=== PATIENT | female | born 1985 | race Caucasian/White ===

== ENCOUNTER → 2018-07-25 12:10 | Outpatient (CLI) | payer OTHER, SELFPAY ==
--- NOTE | 2018-07-25 12:22 | XR_ITS ---
XR chest 2V HISTORY: ITS.REASON: SOB ORDERING PHYSICIAN: Jose Lee MD PATIENT AGE: 33 years COMPARISON: None FINDINGS: The cardiomediastinal silhouette and pulmonary vascularity are within normal limits. The lungs are clear without infiltrates, suspicious nodules, or pleural effusions. No acute bony abnormalities. IMPRESSION: Negative chest, no acute finding
== END ==
PROVIDERS: PCP Family Medicine; Visit Provider Family Medicine
DX: R06.02 Shortness of breath (principal)
CPT/HCPCS: 71046

== ENCOUNTER → 2018-07-30 10:47 | Outpatient (CLI) | payer OTHER, SELFPAY ==
--- NOTE | 2018-07-30 | CA_ITS ---
PROCEDURE: 2-D M-mode and color Doppler study INDICATIONS FOR THE TEST: Chest pain COPD Heart Murmur Tobacco Smoking Palpitations Fatigue+ Syncope Edema+ Hypertension Diabetes Mellitus Rheumatic Fever SOB ANAYA+Obesity Hyperlipidemia Family History HD+ Additional History edema, soa PATIENT INFORMATION HEIGHT: 69 WEIGHT: 210 GENDER: Female B/P:145/84 2-D/M-MODE INTERPRETATION: 2-D MEASUREMENTS OBSERVED VALUES IN CMS Right Ventricular Dimension (RVDd) 2.1 Interventricular Septum (Thickness)(IVsd) 0.7 Left Ventricular Internal Dimensions(LVIDd) 5.4 Left Ventricular Posterior Wall (Thickness)(LVPWd) 0.7 Aortic Root 2.6 Aortic Cusp Separation 2.0 Left Atrial Dimensions (LAD) 3.7 2D 1. Left atrium is normal size, left ventricle is normal size, there is no concentric left ventricular hypertrophy, visually estimated ejection fraction 55% with no regional wall motion abnormality. 2. The right atrium and right ventricle are normal size and contractility. 3. The aortic, mitral and tricuspid valvular grossly normal. 4. The pulmonic valve is poorly visualized. 5. No significant pericardial effusion noted. DOPPLER INTERROGATION: Doppler interrogation of the aortic, mitral and tricuspid valvular presence of mild mitral and tricuspid regurgitation, tricuspid regurgitation jet velocity is inadequate for calculation of the right ventricular systolic pressure, diastolic parameters are within normal range. CONCLUSION: 1. Normal left ventricular size, there is no concentric left ventricular hypertrophy, visually estimated ejection fraction 55% with no regional wall motion abnormality, diastolic parameters are within normal range. 2. Mild mitral and tricuspid regurgitation 3. No significant pericardial effusion noted.
== END ==
PROVIDERS: PCP Family Medicine; Visit Provider Family Medicine
DX: R06.02 Shortness of breath (principal); R60.9 Edema, unspecified; R53.83 Other fatigue
CPT/HCPCS: 93306

== ENCOUNTER → 2019-03-04 10:15 | Outpatient (CLI) | payer OTHER, SELFPAY ==
--- NOTE | 2019-03-04 10:23 | MM_ITS ---
MM Dig mamm BI DX w/CAD, US breast RT complete, US breast LT complete INDICATION: Breast pain ORDERING PHYSICIAN: Christi Witt APRN PATIENT AGE: 33 years COMPARISON: None TECHNIQUE: Bilateral mammogram performed along spot compression views and bilateral breast ultrasound FINDINGS: There is average to dense fibroglandular tissue. No discrete mass or malignant appearing microcalcification. Asymmetric density was present in the medial aspect of both breasts which probably related asymmetric fibroglandular tissue. Less apparent on the focal spot compression views but not completely disappearing. No sonographic abnormality evident.. Right breast ultrasound: Unremarkable. No cystic or solid lesions Left breast ultrasound: Unremarkable. No cystic or solid lesions IMPRESSION: Probably benign findings regarding asymmetry in the medial aspect of both breasts. No convincing evidence of malignancy. Suggest 6 month mammographic follow-up BI-RADS Category: 3 Probably Benign Finding Short Term Follow-up RECOMMENDED FOLLOW-UP: 6M - 6 MONTH FOLLOW-UP (A letter has been sent to the patient regarding results of the study.)
== END ==
PROVIDERS: PCP Family Medicine; Visit Provider Nurse Practitioner Family
DX: Z12.31 Encounter for screening mammogram for malignant neoplasm of breast (principal)
CPT/HCPCS: 76641; 77066

== ENCOUNTER → 2020-06-02 09:35 | Outpatient (CLI) | payer OTHER, SELFPAY ==
--- NOTE | 2020-06-02 09:50 | US_ITS ---
PROCEDURE: US ABDOMEN LIMITED CLINICAL INDICATION: REFLUX,ABD CRAMPS,N/V COMPARISON: No exams were available for comparison FINDINGS: PANCREAS: Unremarkable. No obvious mass or abnormal fluid collection. No ductal dilatation LIVER: No focal liver lesions demonstrated. Homogeneous echogenicity. No intrahepatic biliary ductal dilatation evident. There is appropriate direction of blood flow within a non dilated portal vein RIGHT KIDNEY: Unremarkable. Normal size and echogenicity. No hydronephrosis GALLBLADDER: There are multiple gallstones. No gallbladder wall thickening, pericholecystic fluid, or biliary dilatation is evident. Common bile duct is normal at 2 mm IMPRESSION: Cholelithiasis otherwise negative Dictated by: Bacilio Locke MD 06/02/2020 18:14 Bacilio Locke MD in [place] 06/02/2020 18:14
== END ==
PROVIDERS: PCP Family Medicine; Visit Provider Nurse Practitioner Family
DX: K21.9 Gastro-esophageal reflux disease without esophagitis (principal)
CPT/HCPCS: 76705

== ENCOUNTER 2020-08-12 17:30 | Emergency (ER) | payer OTHER, SELFPAY ==
[2020-08-12 17:40] VITALS: BP 136/76; PULSE 58; RESP 20; TEMP 37.3; O2SAT 100; BMI 31.1
--- NOTE | 2020-08-12 18:00 | HMH.EDUTC ---
[facility] [place] Disposition Clinical Impression: Viral syndrome, Exposure to COVID-19 virus Disposition: Home, Self-Care Condition on Discharge: Good Instructions: Preventing the Spread of Coronavirus Discharge Instructions Additional Instructions: Drink plenty of fluids. Take tylenol for pain or fever. Return if you begin to have difficulty breathing. Follow up with your regular doctor. GO TO THE ER FOR ANY WORSENING SYMPTOMS Prescriptions: Ondansetron [Zofran 4mg ODT] 4 mg PO Q8HP PRN #12 tab.rapdis PRN Reason: Nausea Transmission Status: Received by [id number] Referrals: Jose Lee MD [Primary Care Provider] - Time of Disposition: 18:01 Medical Decision Making - Medical Records Medical records reviewed: No: I reviewed the patient's medical records. - Jay Inquiry Pt receiving controlled substance: No Vital Signs: 08/12/20 17:40 08/12/20 18:06 Temperature 99.1 F 99.1 F Temperature Source Oral Pulse Rate 58 L Pulse Rate [Right Brachial] 58 L Respiratory Rate 20 20 Blood Pressure 136/76 Blood Pressure [Right Arm] 136/76 Blood Pressure Mean [Right Arm] 96 Blood Pressure Source [Right Arm] Automatic Cuff Blood Pressure Position [Right Arm] Sitting 02 Sat by Pulse Oximetry 100 Oxygen Delivery Method Room Air Orders (Tests/Meds): ORDERS Category Date Time Status Covid-19 Nasal PCR ([facility]) Routine Lab 08/12/20 17:44 Received [facility] [place] HPI - General Stated complaint: covid exposure, headache Time Seen by Provider: 08/12/20 17:45 - History of Present Illness Provider Complaint: She c/o body aches, cough, n/d since yesterday. She was exposed to covid. - Related Data Home Medications Medication Instructions Recorded Confirmed pantoprazole 40 mg tablet,delayed PO #30 tab 02/05/19 06/23/20 release Previous Rx's Medication Instructions Recorded norgestimate 0.25 mg-ethinyl 1 tab PO ONCE #84 tab 10/27/19 estradiol 35 mcg tablet Ondansetron [Zofran 4mg ODT] 4 mg PO Q8HP PRN #12 tab.rapdis 08/12/20 Allergies Allergy/AdvReac Type Severity Reaction Status Date / Time No Known Allergies Allergy Verified 06/23/20 09:24 [facility] History - Hepatitis A Screen Attestation statement:: This patient has been screened for Hepatitis A risk factors. I have reviewed the patient's past medical history: Yes Laterality Cases: Bilateral: Tonsillectomy - Social History Smoking Status: Never smoker Alcohol Intake: current Alcohol Intake Frequency:: holidays/special occasions only Occupational Status: employed Family Hx:: Diabetes, Asthma Comment: Gestational Diabetes-Mother ROS Obtained: Yes All systems reviewed & no additional complaints - Constitutional Constitutional: Reports system reviewed and no additional complaints, except as docu - Eyes Eyes: Reports system reviewed and no additional complaints, except as docu - ENT Ears, Nose, Mouth, and Throat: Reports system reviewed and no additional complaints, except as docu - Cardiovascular Cardiovascular: Reports system reviewed and no additional complaints, except as docu - Respiratory Respiratory: Yes system reviewed and no additional complaints, except as docu - Gastrointestinal Gastrointestingal: Reports: system reviewed and no additional complaints, except as docu Physical Exam - General General appearance: alert, in no apparent distress - Head Head exam: atraumatic, normocephalic, normal inspection - Eye Eye exam: Present: normal appearance, PERRL, EOMI - ENT ENT exam: Present: normal exam, normal oropharynx, mucous membranes moist, TM's normal bilaterally, normal external ear exam - Neck Neck exam: Present: normal inspection, full ROM, trachea midline. Absent: meningismus, lymphadenopathy - Chest Chest inspection: Present: normal inspection, symmetric chest wall rise. Absent: tenderness - Respiratory Respiratory exam: Present: normal lung sounds bilat
[2020-08-12 18:06] VITALS: BP 136/76; PULSE 58; RESP 20; TEMP 37.3; O2SAT 100
== END 2020-08-12 18:13 | disposition home or self-care (01) ==
PROVIDERS: Emergency Provider Nurse Practitioner Family; PCP Family Medicine
DX: Z20.828 Contact with and (suspected) exposure to other viral communicable diseases (principal); B34.9 Viral infection, unspecified
CPT/HCPCS: 99201; U0003

== ENCOUNTER → 2020-12-31 10:57 | Outpatient (CLI) | payer OTHER, SELFPAY ==
--- NOTE | 2020-12-31 11:00 | US_ITS ---
PROCEDURE: US TRANSVAGINAL CLINICAL INDICATION: IRREGULAR PERIOD COMPARISON: No exams were available for comparison FINDINGS: UTERUS: 6.4 x 4cmx 3cm with a combined endometrial thickness of 1.2mm LEFT OVARY: 0nsm1tcc1.6cm with a volume of 15ml. RIGHT OVARY: 2cmx 2xyj2ln with a volume of 0.9ml. Retroverted uterus is noted. There is an anechoic lesion noted in the left ovary measuring 3.7 x 2.6 centimeters, likely represents a cyst. No free fluid in the pelvic cul-de-sac. IMPRESSION: Cyst in the left ovary measuring 3.7 centimeters. No free fluid. Dictated by: Yamila Machado 12/31/2020 14:28 Yamila Machado in [place] 12/31/2020 14:28
== END ==
PROVIDERS: PCP Nurse Practitioner Family; Visit Provider Physician Assistant
DX: N92.6 Irregular menstruation, unspecified (principal)
CPT/HCPCS: 76830

== ENCOUNTER 2021-04-21 18:10 | Emergency (ER) | payer OTHER, SELFPAY ==
[2021-04-21 19:10] VITALS: BP 151/101; PULSE 67; RESP 18; TEMP 36.7; O2SAT 98; BMI 27.8
--- NOTE | 2021-04-21 19:29 | XR_ITS ---
PROCEDURE INFORMATION: Exam: XR Right Foot Exam date and time: 04/21/2021 7:29 PM Age: 36 years old Clinical indication: Injury or trauma; Other: Struck 5th (pinky) toe on couch; Blunt trauma; Foot; Right; Additional info: Hit pinky toe on couch TECHNIQUE: Imaging protocol: XR Right foot. Views: 3 or more views. COMPARISON: No relevant prior studies available. FINDINGS: Bones/joints: Oblique intra-articular fracture at the head of the little toe proximal phalanx. Plantar calcaneal spur. No other acutely displaced fractures are identified. There is no evidence of joint dislocation. No aggressive osseous lesions. Soft tissues: Swelling at the little toe. IMPRESSION: Oblique intra-articular fracture at the head of the little toe proximal phalanx.
--- NOTE | 2021-04-21 20:20 | HMH.EDUTC ---
[facility] [place] Disposition Clinical Impression: Fracture of fifth toe, right, closed Qualifiers: Encounter type: initial encounter Qualified Code(s): S92.501A - Displaced unspecified fracture of right lesser toe(s), initial encounter for closed fracture Disposition: Home, Self-Care Condition on Discharge: Good Instructions: Toe Fracture, DI for Toe Fracture Additional Instructions: Rest the extremity, apply ice for 15 minutes as tolerated three or four times per day, Elevate the extremity as tolerated while you are resting. Take ibuprofen for pain. I sent in a prescription to your pharmacy. Follow up with Dr. Campos (orthopedics). I put in a referral but you need to call her office and schedule an appointment. Follow up with your regular doctor. GO TO THE ER FOR ANY WORSENING SYMPTOMS Prescriptions: Ibuprofen [Ibuprofen 800mg Tablet] 800 mg PO Q8HP PRN #30 tab PRN Reason: Moderate Pain Transmission Status: Received by [id number] Referrals: Flor Garcia PA [Primary Care Provider] - Bernice Campos DPM [Staff Physician] - Time of Disposition: 20:27 Medical Decision Making - Medical Records Medical records reviewed: No: I reviewed the patient's medical records. - Jay Inquiry Pt receiving controlled substance: No Vital Signs: 04/21/21 19:10 04/21/21 20:29 Temperature 98.1 F 98.1 F Temperature Source Oral Pulse Rate 67 Pulse Rate [Right Brachial] 67 Respiratory Rate 18 18 Blood Pressure 151/101 H Blood Pressure [Right Arm] 151/101 H Blood Pressure Mean [Right Arm] 117 Blood Pressure Source [Right Arm] Automatic Cuff Blood Pressure Position [Right Arm] Sitting 02 Sat by Pulse Oximetry 98 Oxygen Delivery Method Room Air - Radiology Data #1 Image(s): Foot/Toes Image Reviewed: Yes I reviewed the patient's radiology image, Yes I have reviewed radiologist's interpretation Preliminary Findings: Abnormal PROCEDURE INFORMATION: Exam: XR Right Foot Exam date and time: 04/21/2021 7:29 PM Age: 36 years old Clinical indication: Injury or trauma; Other: Struck 5th (pinky) toe on couch; Blunt trauma; Foot; Right; Additional info: Hit pinky toe on couch TECHNIQUE: Imaging protocol: XR Right foot. Views: 3 or more views. COMPARISON: No relevant prior studies available. FINDINGS: Bones/joints: Oblique intra-articular fracture at the head of the little toe proximal phalanx. Plantar calcaneal spur. No other acutely displaced fractures are identified. There is no evidence of joint dislocation. No aggressive osseous lesions. Soft tissues: Swelling at the little toe. IMPRESSION: Oblique intra-articular fracture at the head of the little toe proximal phalanx. [facility] [place] HPI - General Stated complaint: AO 1700 injured r Little toe Time Seen by Provider: 04/21/21 19:50 Mode of Arrival: Ambulatory Source of Information: Patient Limitations: No Limitations Description of Symptoms (Recalled from Triage Doc. by RN): PATIENT C/O INJURY TO RIGHT PINKY TOE AFTER HITTING IT ON COUCH TODAY HEENT Symptoms (Recalled from RN notes): No Resp Symptoms (Recalled from RN notes): No Skin Symptoms (Recalled from RN notes): No MS Symptoms (Recalled from RN notes): Yes Functional Status (Recalled from RN notes): WNL - History of Present Illness Provider Complaint: She states that earlier today she was walking thru her living room and she accidentily hit her right 5th toe on the couch leg. She states that she heard a loud pop and it began to hurt and swell. Since then she has had right foot pain and swelling in the area of her 5th toe. - Related Data Previous Rx's Medication Instructions Recorded norgestimate 0.25 mg-ethinyl 1 tab PO DAILY #84 tab 03/03/21 estradiol 35 mcg tablet Ibuprofen [Ibuprofen 800mg 800 mg PO Q8HP PRN #30 tab 04/21/21 Tablet] Allergies Allergy/AdvReac Type
[2021-04-21 20:29] VITALS: BP 151/101; PULSE 67; RESP 18; TEMP 36.7; O2SAT 98
== END 2021-04-21 20:46 | disposition home or self-care (01) ==
PROVIDERS: Emergency Provider Nurse Practitioner Family; PCP Physician Assistant
DX: S92.514A Nondisplaced fracture of proximal phalanx of right lesser toe(s), initial encounter for closed fracture (principal); W22.03XA Walked into furniture, initial encounter; Y92.019 Unspecified place in single-family (private) house as the place of occurrence of the external cause
CPT/HCPCS: 73630; 99202; G0463

== ENCOUNTER → 2021-05-26 10:47 | Outpatient (CLI) | payer OTHER, SELFPAY ==
--- NOTE | 2021-05-26 10:52 | XR_ITS ---
PROCEDURE: XR FOOT WT BEARING RT 3V CLINICAL INDICATION: fracture evaluation COMPARISON: CR XR FOOT RT MIN 3V from 04/21/2021 FINDINGS: No after the head of the proximal phalanx little toe has essentially healed with no significant deformity. The tarsal bones metatarsals and remaining phalanges all appear intact. Again noted is a small spur of the calcaneus at the insertion of plantar tendon. IMPRESSION: Essentially healed fracture head of proximal phalanx little toe Dictated by: Dr. Serg Beverly MD 05/26/2021 11:28 Dr. Serg Beverly MD in [place] 05/26/2021 11:28
== END ==
PROVIDERS: PCP Nurse Practitioner Family; Visit Provider Nurse Practitioner
DX: S92.514A Nondisplaced fracture of proximal phalanx of right lesser toe(s), initial encounter for closed fracture (principal); S92.501A Displaced unspecified fracture of right lesser toe(s), initial encounter for closed fracture; T14.8XXA Other injury of unspecified body region, initial encounter
CPT/HCPCS: 73630

== ENCOUNTER → 2021-08-30 13:33 | Outpatient (POV) | payer OTHER, SELFPAY | PROVIDERS: Visit Provider Dermatology | DX: Z00.00 Encounter for general adult medical examination without abnormal findings (principal) ==

== ENCOUNTER → 2021-09-15 17:05 | Outpatient (CLI) | payer OTHER, SELFPAY | PROVIDERS: Visit Provider Nurse Practitioner | DX: Z20.822 Contact with and (suspected) exposure to COVID-19 (principal) | CPT/HCPCS: C9803; U0003; U0005 ==

== ENCOUNTER 2022-05-10 19:46 | Inpatient (IN) | payer OTHER, SELFPAY ==
[2022-05-10] VITALS (7 sets, daily range): BP systolic 107–151; BP diastolic 69–96; PULSE 81–97; RESP 14–17; TEMP 36.4–36.9; O2SAT 94–100; BMI 29.5; BMI 28.8
--- NOTE | 2022-05-10 20:27 | CT_ITS ---
PROCEDURE INFORMATION: Exam: CT Abdomen And Pelvis With Contrast Exam date and time: 05/10/2022 8:58 PM Age: 37 years old Clinical indication: Abdominal pain TECHNIQUE: Imaging protocol: Computed tomography of the abdomen and pelvis with contrast. Radiation optimization: All CT scans at this facility use at least one of these dose optimization techniques: automated exposure control; mA and/or kV adjustment per patient size (includes targeted exams where dose is matched to clinical indication); or iterative reconstruction. Contrast material: ISOVUE; Contrast volume: 75 ml; Contrast route: IV; COMPARISON: US ABDOMEN LIMITED 06/02/2020 10:02 AM FINDINGS: Liver: Normal. No mass. Gallbladder and bile ducts: Cholelithiasis. Pancreas: Marked pancreatic and peripancreatic edema. Free fluid in the abdomen and pelvis likely related to acute pancreatitis. Spleen: Normal. No splenomegaly. Adrenal glands: Normal. No mass. Kidneys and ureters: Normal. No hydronephrosis. Stomach and bowel: Unremarkable. No obstruction. No mucosal thickening. Appendix: Unremarkable appendix. Intraperitoneal space: Unremarkable. No free air. No significant fluid collection. Vasculature: Unremarkable. No abdominal aortic aneurysm. Lymph nodes: Unremarkable. No enlarged lymph nodes. Urinary bladder: Unremarkable as visualized. Reproductive: Unremarkable as visualized. Bones/joints: Unremarkable. No acute fracture. Soft tissues: Tiny fat containing umbilical hernia. Other findings: Stigmata of old granulomatous disease. IMPRESSION: 1. Marked pancreatic and peripancreatic edema. This is most consistent with acute pancreatitis. No peripancreatic fluid collection. Patent portal and splenic veins. Consider MRCP to exclude noncalcified choledocholithiasis/gallstone pancreatitis. Consider excluding autoimmune pancreatitis clinically as well. 2. Cholelithiasis.
[2022-05-10 20:29] LABS: Microscopic, Urine URINE MICROSCOPIC (MICROSCOPIC)
[2022-05-10 20:29] LABS: Coronavirus 19, PCR Not Detected (NotDetected); Influenza A, PCR Not Detected (NotDetected); Influenza B, PCR Not Detected (NotDetected)
[2022-05-10 20:41] LABS: Basophils # 0.1 K/mm3 (0-0.2); Basophils % 0.4 % (0.1-2.0); Eosinophils # 0.2 K/mm3 (0.0-0.4); Eosinophils % 0.4 % (0.1-12.0); Hematocrit 48.5 % (37.0-47.0); Hemoglobin 15.3 g/dL (12.2-16.2); Lymphocytes # 2.1 K/mm3 (0.7-4.5); Lymphocytes % 5.9 % (10-50); Mean Corpuscular HGB Conc 31.6 g/dL (31.8-35.4); Mean Corpuscular Volume 95.1 fl (81-99); Mean Platelet Volume 9.8 fl (7.4-10.4); Monocytes # 1.4 K/mm3 (0.1-1.0); Neutrophils # 30.8 K/mm3 (1.8-7.8); Neutrophils % 89.3 % (37.0-80.0); Platelet Count 308 K/mm3 (142-424); Red Cell Distribution Width 13.1 % (11.5-17.5); White Blood Count 34.5 K/mm3 (4.8-10.8)
[2022-05-10 20:42] LABS: Alanine Aminotransferase 51 U/L (12-78); Albumin Level 4.1 g/dl (3.5-5.0); Albumin/Globulin Ratio 1.2 (1.1-1.8); Alkaline Phosphatase 102 U/L (38-126); Anion Gap 20.4 mEq/L (5-15); Aspartate Amino Transferase 128 U/L (14-36); Bilirubin,Total 1.9 mg/dl (0.2-1.3); Blood Urea Nitrogen 18 mg/dl (7-17); Calcium 8.6 mg/dl (8.4-10.2); Carbon Dioxide 21 mmol/L (22.0-30.0); Chloride 99 mmol/L (98-107); Creatinine Clearance Estimated 135 mL/min (50-200); Estimated Glomerular Filt Rate 81 ml/min (>60); GFR (African American) 98 ML/MIN (>60); Globulin 3.4 g/dL (1.3-3.2); Glucose 197 mg/dl (74-100); Potassium 4.4 mmoL/L (3.5-5.1); Sodium 136 mmol/L (136-145); Total Protein,Serum 7.5 g/dl (6.3-8.2)
[2022-05-10 20:43] LABS: Appearance,Urine CLEAR (Clear); Bilirubin,Urine Negative (Negative); Blood, Urine 1+ (Negative); Color,Urine YELLOW (Yellow); Glucose,Urine (UA) Negative (Negative); Ketones,Urine Negative (Negative); Leukocyte Esterase,Urine Negative (Negative); Nitrate,Urine Negative (Negative); Protein,Urine Negative (Negative); Specific Gravity, Urine 1.025 (1.005-1.030); Urobilinogen,Urine 0.2 EU/dl (0.2)
[2022-05-10 20:48] LABS: C-Reactive Protein 9.3 mg/L (0-4)
--- NOTE | 2022-05-10 20:48 | PC.NURSE ---
PT to bathroom with staff assistance and use of wheelchair.
[2022-05-10 20:56] LABS: Urine Pregnancy, HCG Qual. Negative (Negative)
[2022-05-10 20:59] LABS: MANUAL DIFFERENTIAL MANUAL DIFFERENTIAL (MANUAL DIFF)
[2022-05-10 21:01] LABS: Bacteria,Urine Trace /lpf; Mucus,Urine 1+ /lpf; Squamous Epithelial Cell,Urine Occasional #/hpf (0-5); WBC,Urine Occasional #/hpf (0-3)
[2022-05-10 21:03] LABS: Procalcitonin 0.079 ng/mL (0.0-2.0)
--- NOTE | 2022-05-10 21:10 | PC.NURSE ---
Pt given pillow for comfort. No other needs at this time.
[2022-05-10 21:28] LABS: Amylase 5950 U/L (30-110)
--- NOTE | 2022-05-10 21:34 | HMH.EDNVD ---
Discharge Plan Disposition Patient Disposition: Admitted As Inpatient Chief Complaint: Nausea/Vomiting/Diarrhea Prescriptions Prescriptions: No Action norgestimate-ethinyl estradiol [Sprintec (28)] 0.25-35 mg-mcg tablet 1 tab PO DAILY Referrals Follow up/Referrals: Flor Garcia PA [Primary Care Provider] - See instructions Clinical Impressions Clinical Impression: Acute pancreatitis, Cholelithiasis Instructions Patient Instructions: DI for Diarrhea and Traveler's Diarrhea -- Adult, DI for Diarrhea and Traveler's Diarrhea -- Child, DI for Nausea -- Adult, DI for Nausea -- Child Discharge ED Provider: Devante Zavala Nausea/Vomiting/Diarrhea HPI General Chief complaint: Nausea/Vomiting/Diarrhea Stated complaint: N/V/ABD Pain Time Seen by Provider: 05/10/22 21:34 Mode of Arrival: EMS Source of Information: Patient, Spouse and Medical Record Limitations: No Limitations Description of Symptoms (Recalled from ER Triage Doc. by RN): PT REPORTS NAUSEA/VOMITING SINCE SUNDAY. PT REPORTS INTERMITT PAIN, BUT DENIES PAIN AT THIS TIME. PT FELL ASLEEP SEVERAL TIMES DURING TRIAGE. History of Present Illness HPI Narrative: upper abd pain with nausea and vomiting progressive since sat - has had sx prev intermitt over the last yr MD complaint: nausea, vomiting and abdominal pain Onset (ago): day(s) Associated Abdominal Pain: Yes Location of pain: RUQ and epigastric Severity: moderate Quality: cramping Consistency: intermittent Associated symptoms: denies other symptoms Related Data Home Medications Medication Instructions Recorded Confirmed norgestimate 0.25 mg-ethinyl 1 tab PO DAILY control 05/10/22 05/10/22 estradiol 35 mcg tablet (Sprintec (28)) Allergies Allergy/AdvReac Type Severity Reaction Status Date / Time No Known Allergies Allergy Verified 02/07/22 08:41 PFSH PFSH Social History Smoking Status: Current every day smoker alcohol intake: current substance use type: former substance user and marijuana current occupational status: employed and other Travel in the last 8 weeks: None ROS Obtained: Yes All systems reviewed & no additional complaints except as documented Constitutional Constitutional: Denies fever(s) Eyes Eyes: Denies diplopia ENT Ears, Nose, Mouth, and Throat: Denies epistaxis Cardiovascular Cardiovascular: Denies chest pain with activity Respiratory Respiratory: Denies cough Gastrointestinal Gastrointestingal: Reports as per HPI, dyspepsia and vomiting; Denies coffee ground emesis Genitourinary Female Genitourinary: Denies hematuria Musculoskeletal Musculoskeletal: Denies joint stiffness Physical Exam General General appearance: alert and in no apparent distress Head Head exam: normocephalic Eye Eye exam: Present PERRL and EOMI ENT ENT exam: Present mucous membranes moist Neck Neck exam: Present trachea midline Respiratory Respiratory exam: Present normal lung sounds bilaterally Cardiovascular Cardiovascular exam: Present regular rate Abdominal Exam Abdominal exam: Present soft, tenderness and Haas's sign; Absent guarding, rebound or rigidity Abdominal tenderness: Present RUQ, epigastrium and moderate Extremities Exam Extremities exam: Present full ROM Back Exam Back exam: Absent CVA tenderness (R) Neurological Exam Neurological exam: Present alert, oriented X3 and CN II-XII intact Psychiatric Psychiatric exam: Present normal affect Skin Skin exam: Absent rash Medical Decision Making Medical Records Medical records reviewed: Yes I reviewed the patient's medical records. Jay Inquiry Pt receiving controlled substance: No Vital Signs: 05/10/22 19:51 05/10/22 20:01 Temperature 97.5 F L Temperature Source Oral Pulse Rate 81 Pulse Rate [Left Radial] 87 Respiratory Rate 16 16 Blood Pressure 109/69 L Blood Pressure [Right Arm] 107/85 L Blood Pressure Mean 82 Blood Pressure Mean [Right Arm] 92 Blood Pressure Sour
--- NOTE | 2022-05-10 21:49 | PC.NURSE ---
MD MADE AWARE OF PT REQUEST FOR PAIN MEDICATIONS.
[2022-05-10 22:02] LABS: Erythrocyte Sedimentation Rate 1 mm/hr (0-20)
--- NOTE | 2022-05-10 22:08 | PC.NURSE ---
Dr. Rafita holcomb
--- NOTE | 2022-05-10 22:16 | PC.NURSE ---
benedict on phone with dr roper
--- NOTE | 2022-05-10 22:17 | PC.NURSE ---
PT AWARE OF PLAN TO ADMIT AND NPO STATUS.
--- NOTE | 2022-05-10 22:18 | PC.NURSE ---
House made aware of pt admission and need for bed assignment
--- NOTE | 2022-05-10 22:33 | PC.NURSE ---
PT AND FAMILY AWARE OF PLAN TO ADMIT.
--- NOTE | 2022-05-10 22:58 | PC.NURSE ---
PT REQUESTS DRINKS. NPO STATUS REINFORCED. PT OFFERED ORAL SWABS AND DECLINED.
[2022-05-10 23:01] LABS: Lymphocytes % 7 % (10-50); Neutrophils % 93 % (42-76); Total Cells Counted 100
--- NOTE | 2022-05-10 23:01 | PC.NURSE ---
ORAL SWABS GIVEN.
[2022-05-10 23:02] LABS: Platelet Estimate Normal; RBC Morphology Normal
--- NOTE | 2022-05-10 23:07 | PC.NURSE ---
patient up to floor via wheelchair at this time.
[2022-05-11] VITALS (11 sets, daily range): BP systolic 117–146; BP diastolic 79–98; PULSE 82–164; RESP 16–20; TEMP 36.4–36.9; O2SAT 95–98; BMI 28.8
--- NOTE | 2022-05-11 04:27 | PC.NURSE ---
Pt arrived to floor this shift, alert and oriented x4. Pt has complained of nausea and pain this shift, treated prn per mar. Pt is at bedside. Pt has rested since arriving to the floor. Pt ambulated to the restroom with 1 assist. Pt is receiving IV fluids. Pt lung sounds clear. Abdomen soft and tender, bowel sounds active. O2 sat >90% on room air. Call light in reach and working.
--- NOTE | 2022-05-11 07:24 | EXP.PHA.VTE ---
[facility] VTE Monitoring Patient Demographics Admission date: 05/10/22 Report Date: 05/11/22 Time: 07:24 Patient Allergies No Known Allergies Allergy (Verified 05/10/22 23:11) Height: 1.73 m Weight: 86.409 kg Current Active Problems (Updated 05/10/22 @ 23:19 by Maria R Barry RN) Acute pancreatitis (Acute) Cholelithiasis (Acute) VTE Risk Labs: VTE Related Lab Results Hgb 15.3 g/dL (12.2-16.2) 05/10/22 20:10 Hct 48.5 % (37.0-47.0) H 05/10/22 20:10 Plt Count 308 K/mm3 (142-424) 05/10/22 20:10 BUN 18 mg/dl (7-17) H 05/10/22 20:10 Creatinine 0.80 mg/dl (0.52-1.04) 05/10/22 20:10 Estimated Creat Clear 135 mL/min (50-200) 05/10/22 20:10 VTE Score: 1 VTE Risk Level: Very Low Risk Clinical Trial Participant: No Prophylaxis VTE Prophylaxis Ordered?: Yes Types of VTE Prophylaxis: TEDS Knee High
[2022-05-11 08:02] LABS: Basophils # 0.1 K/mm3 (0-0.2); Basophils % 0.3 % (0.1-2.0); Eosinophils % 0.1 % (0.1-12.0); Hematocrit 52.9 % (37.0-47.0); Hemoglobin 16.3 g/dL (12.2-16.2); Lymphocytes # 0.7 K/mm3 (0.7-4.5); Lymphocytes % 2.9 % (10-50); Mean Corpuscular HGB Conc 30.8 g/dL (31.8-35.4); Mean Corpuscular Hemoglobin 29.7 pg (27.0-31.2); Mean Corpuscular Volume 96.6 fl (81-99); Mean Platelet Volume 9.2 fl (7.4-10.4); Monocytes # 0.7 K/mm3 (0.1-1.0); Monocytes % 3.1 % (1.7-9.3); Neutrophils # 22.4 K/mm3 (1.8-7.8); Neutrophils % 93.6 % (37.0-80.0); Platelet Count 321 K/mm3 (142-424); Red Blood Count 5.48 M/mm3 (4.20-5.40); Red Cell Distribution Width 13.4 % (11.5-17.5)
--- NOTE | 2022-05-11 08:02 | HMH.PHAINT1 ---
Pharmacy Intervention Comments: Home medication list was verified using outpatient pharmacy medication list.
[2022-05-11 08:04] LABS: MANUAL DIFFERENTIAL MANUAL DIFFERENTIAL (MANUAL DIFF)
[2022-05-11 08:15] LABS: Alanine Aminotransferase 62 U/L (12-78); Albumin Level 3.5 g/dl (3.5-5.0); Albumin/Globulin Ratio 1.2 (1.1-1.8); Alkaline Phosphatase 97 U/L (38-126); Anion Gap 20.6 mEq/L (5-15); Aspartate Amino Transferase 69 U/L (14-36); Bilirubin,Total 0.7 mg/dl (0.2-1.3); Blood Urea Nitrogen 18 mg/dl (7-17); Calcium 8.1 mg/dl (8.4-10.2); Carbon Dioxide 21 mmol/L (22.0-30.0); Chloride 101 mmol/L (98-107); Creatinine Clearance Estimated 106 mL/min (50-200); Estimated Glomerular Filt Rate 63 ml/min (>60); GFR (African American) 76 ML/MIN (>60); Glucose 269 mg/dl (74-100); Potassium 4.6 mmoL/L (3.5-5.1); Sodium 138 mmol/L (136-145); Total Protein,Serum 6.5 g/dl (6.3-8.2)
[2022-05-11 08:41] LABS: Lipase 7588 U/L (23-300)
--- NOTE | 2022-05-11 08:51 | PC.NURSE ---
Notified Dr. Lee of critical value lipase. No new orders
[2022-05-11 09:50] LABS: Lymphocytes % 3 % (10-50); Monocytes % 5 % (2-9); Neutrophils % 92 % (42-76); Platelet Estimate Normal; RBC Morphology Normal; Total Cells Counted 100
--- NOTE | 2022-05-11 09:50 | EXP.HP ---
History of Present Illness *Admission Date: 05/10/22 *Reason for visit:: abdominal pain, vomiting *History of present illness: Ms. Griffiths is a 37-year-old female with a history of GERD and IBS who began vomiting this past Sunday. She states she vomited every day and her reflux seems to be worse. Yesterday around 3 PM she began having horrific mid abdominal pain. Her family states she vomited so profusely between 3 and 5:00 yesterday that she could hardly breathe. She was brought to the emergency room for evaluation. She was given morphine, Reglan, and famotidine in the ER and a CT of the abdomen and pelvis was performed. It showed acute pancreatitis as well as gallstones. Her white blood cell count was elevated at 34.5 and her amylase was 5950 and lipase was 55,000. Her bilirubin was elevated at 1.9 and her AST was elevated at 128. She was admitted for further evaluation and treatment. [facility] Medical History (Updated 05/11/22 @ 10:01 by ABIGAIL Gramajo) GERD (gastroesophageal reflux disease) History of IBS Surgical History (Updated 05/11/22 @ 09:56 by ABIGAIL Gramajo) History of loop electrical excision procedure (LEEP) History of tonsillectomy Family History (Updated 05/11/22 @ 09:56 by ABIGAIL Gramajo) Cirrhosis of liver Hypertension Social History (Updated 05/10/22 @ 23:20 by Maria R Barry RN) Smoking Status: Former smoker alcohol intake: current substance use type: former substance user and marijuana current occupational status: employed and other Travel in the last 8 weeks: None Review of Systems Constitutional Constitutional: Denies body ache(s), Reports chills, Reports fatigue, Denies fever(s), Denies headache(s), Reports malaise and Reports weakness Eyes Eyes: Denies blurry vision and Denies diplopia ENT Ears, Nose, Mouth, and Throat: Denies headache(s), Denies nasal congestion, Reports sore throat and Denies vertigo *Cardiovascular Cardiovascular: Denies chest pain and Reports dyspnea *Respiratory Respiratory: Denies cough and Reports dyspnea *Gastrointestinal Gastrointestinal: Reports abdominal pain, Denies loose stools, Reports nausea and Reports vomiting *Genitourinary Genitourinary: Denies difficulty voiding and Denies dysuria *Musculoskeletal Musculoskeletal: Denies arthralgias and Reports myalgias *Neurologic Neurologic: Denies headache(s), Denies vertigo and Reports weakness Endocrine Endocrine: Reports fatigue Meds Home Medications and Allergies Home Medications Medication Instructions Recorded Confirmed Type norgestimate 0.25 mg-ethinyl 1 tab PO DAILY control 05/10/22 05/10/22 History estradiol 35 mcg tablet (Sprintec (28)) New Prescriptions to Start Prescriptions: Allergies Allergy/AdvReac Type Severity Reaction Status Date / Time No Known Allergies Allergy Verified 05/10/22 23:11 Exam Data for Last 24 hours Vital signs and Labs for Last 24 Hours: Temp Pulse Resp BP Pulse Ox 98.1 F 107 H 16 142/98 H 98 05/11/22 08:00 05/11/22 08:00 05/11/22 08:00 05/11/22 08:00 05/11/22 08:00 Laboratory Results - last 24 hr 05/10/22 20:10: WBC 34.5 H*, RBC 5.10, Hgb 15.3, Hct 48.5 H, MCV 95.1, MCH 30.0, MCHC 31.6 L, RDW 13.1, Plt Count 308, MPV 9.8, Neut % (Auto) 89.3 H, Lymph % (Auto) 5.9 L, [place] % (Auto) 4.0, Eos % (Auto) 0.4, Baso % (Auto) 0.4, Neut # (Auto) 30.8 H, Lymph # (Auto) 2.1, [place] # (Auto) 1.4 H, Eos # (Auto) 0.2, Baso # (Auto) 0.1, Total Counted 100, Neutrophils % (Manual) 93 H, Lymphocytes % (Manual) 7 L, Platelet Estimate Normal, RBC Morphology Normal 05/10/22 20:10: Sodium 136, Potassium 4.4, Chloride 99, Carbon Dioxide 21 L, Anion Gap 20.4 H, BUN 18 H, Creatinine 0.80, Estimated Creat Clear 135, Estimated GFR 81, Est GFR ( Amer) 98, Glucose 197 H, Calcium 8.6, Total Bilirubin 1.9 H, AST 128 H, ALT 51, Alkaline Phosphatase 102, C-Reactive Protein 9.3 H, Total Protein 7.5, Albumin 4.1, Globulin 3.4 H, [place]
--- NOTE | 2022-05-11 11:22 | MR_ITS ---
FINAL REPORT CLINICAL HISTORY: pancreatitis best images possible multiple attempts of mip mrcp , not well demonstrated patient refused to do another mip FINDINGS: Multiplanar MR imaging of the abdomen was obtained without contrast. There is a large amount of ascites throughout the upper abdomen. The liver parenchyma is homogeneous. The gallbladder is present. There are multiple gallstones and sludge in the dependent portion of the gallbladder. There is mild gallbladder wall thickening measuring 6 mm. The spleen is unremarkable. There is marked peripancreatic inflammatory reaction, particularly surrounding the head of the pancreas consistent with marked changes of acute pancreatitis. The kidneys are unremarkable. There is fluid in the right and left anterior para renal fascia. The distal common duct is significantly narrowed likely secondary to edema. There is no evidence of choledocholithiasis. IMPRESSION: Marked changes of acute pancreatitis. No definite choledocholithiasis. Stones and sludge in the gallbladder. Moderate ascites. Reviewed, Interpreted and Dictated by Jarrod Chaudhari MD Transcribed by Christi Archuleta Authenticated and [facility]
--- NOTE | 2022-05-11 15:30 | PC.NURSE ---
rounded on patient. patient resting in bed with family at bedside. educated on patient portal. no specific questions or concerns. waiting on mri results. encouraged them to ring out as needed
--- NOTE | 2022-05-11 17:34 | EXP.PN ---
Subjective *Date: 05/11/22 *Time: 17:34 Interval history: BRIEF F/U NOTE: Still having pain but states it is a hunger pain and wants something to eat and drink. Still with nausea but no vomiting. Exam Data for Last 24 hours Vital signs and Labs for Last 24 Hours: Temp Pulse Resp BP Pulse Ox 98.1 F 154 H 18 130/94 H 98 05/11/22 15:28 05/11/22 15:28 05/11/22 15:28 05/11/22 15:28 05/11/22 15:28 Laboratory Results - last 24 hr 05/10/22 20:10: WBC 34.5 H*, RBC 5.10, Hgb 15.3, Hct 48.5 H, MCV 95.1, MCH 30.0, MCHC 31.6 L, RDW 13.1, Plt Count 308, MPV 9.8, Neut % (Auto) 89.3 H, Lymph % (Auto) 5.9 L, [place] % (Auto) 4.0, Eos % (Auto) 0.4, Baso % (Auto) 0.4, Neut # (Auto) 30.8 H, Lymph # (Auto) 2.1, [place] # (Auto) 1.4 H, Eos # (Auto) 0.2, Baso # (Auto) 0.1, Total Counted 100, Neutrophils % (Manual) 93 H, Lymphocytes % (Manual) 7 L, Platelet Estimate Normal, RBC Morphology Normal 05/10/22 20:10: Sodium 136, Potassium 4.4, Chloride 99, Carbon Dioxide 21 L, Anion Gap 20.4 H, BUN 18 H, Creatinine 0.80, Estimated Creat Clear 135, Estimated GFR 81, Est GFR ( Amer) 98, Glucose 197 H, Calcium 8.6, Total Bilirubin 1.9 H, AST 128 H, ALT 51, Alkaline Phosphatase 102, C-Reactive Protein 9.3 H, Total Protein 7.5, Albumin 4.1, Globulin 3.4 H, Albumin/Globulin Ratio 1.2, Amylase 5950 H*, Lipase 07585 H 05/10/22 20:10: ESR 1 05/10/22 20:10: Procalcitonin 0.079 05/10/22 20:14: Urine Color Yellow, Urine Appearance Clear, Urine pH 6.0, Ur Specific [place] 1.025, Urine Protein Negative, Urine Glucose (UA) Negative, Urine Ketones Negative, Urine Blood 1+, Urine Nitrate Negative, Urine Bilirubin Negative, Urine Urobilinogen 0.2, Ur Leukocyte Esterase Negative, Urine RBC None, Urine WBC Occasional, Ur Squamous Epith Cells Occasional, Urine Bacteria Trace, Urine Mucus 1+ 05/10/22 20:14: Urine HCG, Qual Negative 05/10/22 20:21: SARS-CoV-2 (PCR) Not detected, Influenza A Untype (PCR) Not detected, Influenza Type B (PCR) Not detected 05/11/22 07:18: WBC 24.0 H* D, RBC 5.48 H, Hgb 16.3 H, Hct 52.9 H, MCV 96.6, MCH 29.7, MCHC 30.8 L, RDW 13.4, Plt Count 321, MPV 9.2, Neut % (Auto) 93.6 H, Lymph % (Auto) 2.9 L, [place] % (Auto) 3.1, Eos % (Auto) 0.1, Baso % (Auto) 0.3, Neut # (Auto) 22.4 H, Lymph # (Auto) 0.7, [place] # (Auto) 0.7, Eos # (Auto) 0.0, Baso # (Auto) 0.1, Total Counted 100, Neutrophils % (Manual) 92 H, Lymphocytes % (Manual) 3 L, Monocytes % (Manual) 5, Platelet Estimate Normal, RBC Morphology Normal 05/11/22 07:18: Sodium 138, Potassium 4.6, Chloride 101, Carbon Dioxide 21 L, Anion Gap 20.6 H, BUN 18 H, Creatinine 1.00 D, Estimated Creat Clear 106, Estimated GFR 63, Est GFR ( Amer) 76 D, Glucose 269 H D, Calcium 8.1 L, Total Bilirubin 0.7, AST 69 H D, ALT 62, Alkaline Phosphatase 97, Total Protein 6.5, Albumin 3.5 D, Globulin 3.0, Albumin/Globulin Ratio 1.2, Lipase 7588 H I & O for Last 24 hours: Intake & Output 05/09/22 05/10/22 05/11/22 05/12/22 11:59 11:59 11:59 11:59 Intake Total 1655 / 1655 Output Total 250 / 250 Balance 1405 / 1405 Weight 190 lb 8 oz Assessment and Plan *Assessment and plan (1) Acute pancreatitis: Status: Acute Category: Medical Code(s): K85.90 - Acute pancreatitis without necrosis or infection, unspecified (2) Cholelithiasis: Status: Acute Category: Medical Code(s): K80.20 - Calculus of gallbladder without cholecystitis without obstruction (3) Leukocytosis: Status: Acute Category: Medical Code(s): D72.829 - Elevated white blood cell count, unspecified Assessment and plan all Dx Assessment and Plan All Dx:: MRCP continues to show changes of acute pancreatitis with edema around the head to the pancreas but no choledocholithiasis. Continue conservative treatment and repeat labs in AM.
--- NOTE | 2022-05-11 19:52 | ECG_ITS ---
APPROVED REPORT Exam: Resting ECG HR:164 bpm ECG Measurements Heart Rate 164 AXES QRSd 76 QRS 54 QT 284 T 77 QTc 374 Conclusion SUPRAVENTRICULAR TACHYCARDIA NONSPECIFIC ST & T-WAVE ABNORMALITY CRITICAL TEST RESULT UNCONFIRMED REPORT Electronically signed by : Aubrey Bradford MD 05/13/2022 06:57:57
--- NOTE | 2022-05-11 20:19 | PC.NURSE ---
1944 pct stated that pt hr up to 163, assessed pt and was noted to be tachycardic, b/p 146/95, t 97.5, rr 20, pt pale in color, denies chest pain, stated groin pain and irving when she pees, pt was instructed to bear down and blow through straw vagal maneuvers unsuccessful, ekg obtained and was read by er physician dr mcmullen as rate sinus tach, dr valentin paged. 2007 dr valentin called and was given all information as stated above, order recieved to place patient in stepdown and start diltiazem drip, orders for drip given to stepdown nurse by dr valentin, pt was moved to room 219 with all personal belongings, report given to chantel moss
--- NOTE | 2022-05-11 20:34 | PC.NURSE ---
Patient complained opf pain during the day and stated it was because she needed to eat. Educated to patient why she could not eat right now as she was still actively vomiting and the doctor stated she could only have a couple of ice chips throughout the day. Patient stated she wanted something to help her sleep tonight. Lukasien ordered one time dose by Dr. Peterson. Patient still vomiting near end of shift, zofran given as well as more pain medication.
--- NOTE | 2022-05-11 21:45 | PC.NURSE ---
Pt placed are diltiazem gtt. Initial bolus administered prior to infusion. Diltiazem gtt currently infusing @ 15 ml/hr. HR 140s at this time. at bedside. PM medication given. Pt requested to have her ambien. Call light at bedside.
--- NOTE | 2022-05-11 22:13 | PC.NURSE ---
2024. Spoke with MD Peterson to give pt Diltiazem bolus and place pt on Diltiazem gtt. Report received from Guero Berger RN. Pt transferred to step Down.
[2022-05-12] VITALS (15 sets, daily range): BP systolic 94–130; BP diastolic 45–85; PULSE 89–136; RESP 16–23; TEMP 36.6–37.1; O2SAT 92–99; BMI 30.2
[2022-05-12 02:46] LABS: Amphetamine/Metha Screen,Urine Negative ng/ml (<1000)
[2022-05-12 02:47] LABS: Barbiturates Screen,Urine Negative ng/ml (<200)
[2022-05-12 02:48] LABS: Benzodiazepines Screen,Urine Negative ng/ml (<200); Cannabinoid Screen,Urine Negative ng/ml (<50)
[2022-05-12 02:49] LABS: Cocaine Screen,Urine Negative ng/ml (<300)
[2022-05-12 02:50] LABS: Methadone Screen,Urine Negative ng/ml (<300); Opiate Screen,Urine Negative ng/ml (<300)
[2022-05-12 02:51] LABS: Phencyclidine Screen,Urine Negative ng/ml (<25)
--- NOTE | 2022-05-12 05:15 | PC.NURSE ---
Pt is alert and oriented x4. Pt transferred to [place] this shift due to HR in the 150s. Pt started of diltiazem at 15mL/hr. Did not bring her HR down, metoprolol given twice this shift, once at 2314 and once at 0346, while remaining on diltiazem at 15mL/hr. Pt has ambulated to the restroom with 2 assist with urine output. Pt complained of pain 1 time, treated prn per oct. Pt HR has been 112-125. All other VS stable. Pt remains room air. Lung sounds clear. Bed alarm on. Call light in place.
[2022-05-12 06:50] LABS: Basophils # 0.1 K/mm3 (0-0.2); Basophils % 0.3 % (0.1-2.0); Eosinophils % 0.1 % (0.1-12.0); Hematocrit 47.6 % (37.0-47.0); Hemoglobin 15.2 g/dL (12.2-16.2); Lymphocytes # 1.6 K/mm3 (0.7-4.5); Lymphocytes % 4.3 % (10-50); Mean Corpuscular HGB Conc 31.9 g/dL (31.8-35.4); Mean Corpuscular Hemoglobin 30.4 pg (27.0-31.2); Mean Corpuscular Volume 95.3 fl (81-99); Monocytes # 1.2 K/mm3 (0.1-1.0); Neutrophils % 92.4 % (37.0-80.0); Platelet Count 250 K/mm3 (142-424); Red Blood Count 4.99 M/mm3 (4.20-5.40); Red Cell Distribution Width 13.2 % (11.5-17.5); White Blood Count 37.9 K/mm3 (4.8-10.8)
[2022-05-12 06:52] LABS: MANUAL DIFFERENTIAL MANUAL DIFFERENTIAL (MANUAL DIFF)
[2022-05-12 07:05] LABS: Alanine Aminotransferase 31 U/L (12-78); Albumin Level 2.8 g/dl (3.5-5.0); Albumin/Globulin Ratio 1.1 (1.1-1.8); Alkaline Phosphatase 87 U/L (38-126); Anion Gap 14.9 mEq/L (5-15); Aspartate Amino Transferase 63 U/L (14-36); Bilirubin,Total 1.2 mg/dl (0.2-1.3); Blood Urea Nitrogen 26 mg/dl (7-17); Calcium 6.6 mg/dl (8.4-10.2); Carbon Dioxide 20 mmol/L (22.0-30.0); Chloride 100 mmol/L (98-107); Chol/HDL Ratio 2.1 (1-3.5); Cholesterol 116 mg/dl (140-200); Creatinine Clearance Estimated 111 mL/min (50-200); Estimated Glomerular Filt Rate 63 ml/min (>60); GFR (African American) 76 ML/MIN (>60); Globulin 2.6 g/dL (1.3-3.2); Glucose 264 mg/dl (74-100); HDL Cholesterol 56 mg/dl (40-60); Potassium 4.9 mmoL/L (3.5-5.1); Sodium 130 mmol/L (136-145); Total Protein,Serum 5.4 g/dl (6.3-8.2); Triglycerides 116 mg/dl (30-150); VLDL Cholesterol 23 mg/dL (0-40)
[2022-05-12 08:33] LABS: Lipase 9131 U/L (23-300)
--- NOTE | 2022-05-12 08:59 | EXP.ACUTE.PN ---
Subjective *Date: 05/12/22 *Time: 09:17 Interval history: Patient states she still feels poorly today. She has not had any further vomiting and wants some clear liquids and a popsicle. She does state that her abdominal pain has improved slightly, but she has now developed some lower abdominal pain and dysuria and thinks she may have a UTI. She had episodes of SVT yesterday and had to be moved to stepdown and started on a cardizem drip. Medical Exam Vital signs and Labs for Last 24 Hours: Temp Pulse Resp BP Pulse Ox 98.0 F 118 H 23 113/85 96 05/12/22 04:00 05/12/22 06:00 05/12/22 06:00 05/12/22 06:00 05/12/22 06:00 Laboratory Results - last 24 hr 05/10/22 20:14: Urine Opiates Screen Negative, Urine Methadone Screen Negative, Ur Barbituates Screen Negative, Ur Phencyclidine Scrn Negative, Ur Amphetamines Screen Negative, U Benzodiazepines Scrn Negative, Urine Cocaine Screen Negative, U Marijuana (THC) Screen Negative 05/11/22 07:18: Total Counted 100, Neutrophils % (Manual) 92 H, Lymphocytes % (Manual) 3 L, Monocytes % (Manual) 5, Platelet Estimate Normal, RBC Morphology Normal 05/12/22 05:45: WBC 37.9 H* D, RBC 4.99, Hgb 15.2, Hct 47.6 H, MCV 95.3, MCH 30.4, MCHC 31.9, RDW 13.2, Plt Count 250, MPV 10.0, Neut % (Auto) 92.4 H, Lymph % (Auto) 4.3 L, [place] % (Auto) 3.0, Eos % (Auto) 0.1, Baso % (Auto) 0.3, Neut # (Auto) 35.0 H, Lymph # (Auto) 1.6, [place] # (Auto) 1.2 H, Eos # (Auto) 0.0, Baso # (Auto) 0.1 05/12/22 05:45: Sodium 130 L, Potassium 4.9, Chloride 100, Carbon Dioxide 20 L, Anion Gap 14.9, BUN 26 H D, Creatinine 1.00, Estimated Creat Clear 111, Estimated GFR 63, Est GFR ( Amer) 76, Glucose 264 H, Calcium 6.6 L, Total Bilirubin 1.2, AST 63 H, ALT 31 D, Alkaline Phosphatase 87, Total Protein 5.4 L, Albumin 2.8 L D, Globulin 2.6, Albumin/Globulin Ratio 1.1, Triglycerides 116, Cholesterol 116 L, LDL Cholesterol Direct 30.00 L, VLDL Cholesterol 23, HDL Cholesterol 56, Cholesterol/HDL Ratio 2.1, Lipase 9131 H I & O for Labs for Last 24 Hours: Intake & Output 05/09/22 05/10/22 05/11/22 05/12/22 11:59 11:59 11:59 11:59 Intake Total 1655 / 1655 1247 / 1247 Output Total 250 / 250 0 / 0 Balance 1405 / 1405 1247 / 1247 Weight 190 lb 8 oz 199 lb 9 oz Constitutional: Present no acute distress (Does not appear to feel well) Respiratory: Present CTA bilaterally Cardiac: Present Regular Rhythm and Tachycardia GI: Present soft and tenderness (bilateral lower abdominal tenderness); Absent distention Extremities: Absent edema Assessment and Plan *Assessment and plan (1) Acute pancreatitis: Status: Acute Category: Medical Code(s): K85.90 - Acute pancreatitis without necrosis or infection, unspecified (2) Cholelithiasis: Status: Acute Category: Medical Code(s): K80.20 - Calculus of gallbladder without cholecystitis without obstruction (3) Leukocytosis: Status: Acute Category: Medical Code(s): D72.829 - Elevated white blood cell count, unspecified (4) Elevated glucose: Status: Acute Category: Medical Code(s): R73.09 - Other abnormal glucose (5) Elevated bilirubin: Status: Acute Category: Medical Code(s): R17 - Unspecified jaundice (6) Elevated LFTs: Status: Acute Category: Medical Code(s): R79.89 - Other specified abnormal findings of blood chemistry (7) History of IBS: Status: Chronic Category: Medical Code(s): Z87.19 - Personal history of other diseases of the digestive system (8) GERD (gastroesophageal reflux disease): Status: Chronic Category: Medical Code(s): K21.9 - Gastro-esophageal reflux disease without esophagitis (9) SVT (supraventricular tachycardia): Status: Acute Category: Medical Code(s): I47.1 - Supraventricular tachycardia Plan Patient was started on a diltiazem drip and her rate has slowed into the 130s. Cardiology
[2022-05-12 09:49] LABS: Lymphocytes % 4 % (10-50); Monocytes % 3 % (2-9); Neutrophils % 93 % (42-76); RBC Morphology Normal; Total Cells Counted 100
[2022-05-12 09:50] LABS: Platelet Estimate Normal
--- NOTE | 2022-05-12 10:42 | CT_ITS ---
FINAL REPORT TECHNIQUE: Thin section axial CT images were obtained from the lung apices to the upper abdomen. IV contrast was administered. MIP 3-D reformats were obtained. This study was performed with techniques to keep radiation doses as low as reasonably achievable (ALARA). Individualized dose reduction techniques using automated exposure control or adjustment of mA and/or kV according to the patient's size were employed. CLINICAL HISTORY: TACHYCARDIA, SOB FINDINGS: The heart size is normal. There is no adenopathy. There is suboptimal opacification of the pulmonary arteries. There is no definite filling defect to suggest PE. There is no aortic dissection. There is no pericardial effusion. There are patchy bibasilar airspace infiltrates and atelectasis. There are moderate bilateral pleural effusions. There is a large amount of ascites in the upper abdomen. The pancreas is not well seen as a discrete structure. There appears to be extensive inflammation in fluid in the pancreatic bed that may be due to acute pancreatitis. There appears to be calcification of the gallbladder wall. IMPRESSION: No definite pulmonary embolism. Bibasilar consolidation and moderate pleural effusions. Moderate ascites in the upper abdomen. Marked abnormal appearance of the pancreas. Dedicated abdomen and pelvis CT is recommended. Partially porcelain gallbladder. Reviewed, Interpreted and Dictated by Jarrod Chaudhari MD Transcribed by Rey Bhat Authenticated and . [facility]
--- NOTE | 2022-05-12 10:44 | EXP.CARD.CON ---
History of Present Illness History of Present Illness Consult date: 05/12/22 Requesting physician: Jose Lee Chief complaint: Acute pancreatitis, tachycardia History of present illness: 37 year old white female with no significant past medical hx is currently admitted inpatient for acute pancreatitis. Cardiology was consulted today for tachycardia developing last night. Patient reports she started having upper abdominal pain and multiple episodes of vomiting starting this past Sunday and continuing since then. Patient came to hospital on 05/10. Ct of abdomen showed acute pancreatitis and cholelithiasis. Initial WBC was 34.5 which has trended up to 37.9. Creatinine has trended up to 1 from .80 and BUN today is 26. Sodium noted at 130. Total bili on admission was 1.9 which has trended down to 1.2, ast on admission was 128 and today is 63. Lipase on admission was 17851 and is now 9131. Patient denies any past cardiac hx or symptoms of tachycardia. Patient was started on dilt drip and given one dose of metoprolol last night which helped but patient remains tachy in 120s which increases with any movement or walking. Patient denies chest pain or soa. Denies LE edema or pain. Of note patient is on oral contraceptives. Patient is actively vomiting during initial evaluation. Reports increasing abdominal pain [facility] Medical History (Updated 05/12/22 @ 10:57 by Rosemarie Gage APRN) GERD (gastroesophageal reflux disease) History of IBS Surgical History (Updated 05/11/22 @ 09:56 by ABIGAIL Gramajo) History of loop electrical excision procedure (LEEP) History of tonsillectomy Family History (Updated 05/11/22 @ 09:56 by ABIGAIL Gramajo) Other Cirrhosis of liver Hypertension Social History (Updated 05/10/22 @ 23:20 by Maria R Barry RN) Smoking Status: Former smoker alcohol intake: current substance use type: former substance user and marijuana current occupational status: employed and other Travel in the last 8 weeks: None Review of Systems Constitutional Constitutional: Denies headache(s) and Reports weakness ENT Ears, Nose, Mouth, and Throat: Denies headache(s) and Denies vertigo *Cardiovascular Cardiovascular: Denies chest pain and Denies dyspnea *Respiratory Respiratory: Denies dyspnea *Gastrointestinal Gastrointestinal: Reports nausea and Reports vomiting Comments: upper abdomianl pain *Neurologic Neurologic: Denies headache(s), Denies vertigo and Reports weakness Exam Data for Last 24 hours Vital signs and Labs for Last 24 Hours: Temp Pulse Resp BP Pulse Ox 97.8 F 121 H 22 128/80 99 05/12/22 08:00 05/12/22 10:00 05/12/22 10:00 05/12/22 10:00 05/12/22 10:00 Laboratory Results - last 24 hr 05/10/22 20:14: Urine Opiates Screen Negative, Urine Methadone Screen Negative, Ur Barbituates Screen Negative, Ur Phencyclidine Scrn Negative, Ur Amphetamines Screen Negative, U Benzodiazepines Scrn Negative, Urine Cocaine Screen Negative, U Marijuana (THC) Screen Negative 05/12/22 05:45: WBC 37.9 H* D, RBC 4.99, Hgb 15.2, Hct 47.6 H, MCV 95.3, MCH 30.4, MCHC 31.9, RDW 13.2, Plt Count 250, MPV 10.0, Neut % (Auto) 92.4 H, Lymph % (Auto) 4.3 L, [place] % (Auto) 3.0, Eos % (Auto) 0.1, Baso % (Auto) 0.3, Neut # (Auto) 35.0 H, Lymph # (Auto) 1.6, [place] # (Auto) 1.2 H, Eos # (Auto) 0.0, Baso # (Auto) 0.1, Total Counted 100, Neutrophils % (Manual) 93 H, Lymphocytes % (Manual) 4 L, Monocytes % (Manual) 3, Platelet Estimate Normal, RBC Morphology Normal 05/12/22 05:45: Sodium 130 L, Potassium 4.9, Chloride 100, Carbon Dioxide 20 L, Anion Gap 14.9, BUN 26 H D, Creatinine 1.00, Estimated Creat Clear 111, Estimated GFR 63, Est GFR ( Amer) 76, Glucose 264 H, Calcium 6.6 L, Total Bilirubin 1.2, AST 63 H, ALT 31 D, Alkaline Phosphatase 87, Total Protein 5.4 L, Albumin 2.8 L D, Globulin 2.6, Albumin/Globulin Ratio 1.1, Triglycerides 116, Cholesterol 116 L, LDL Cholesterol Direct 30.00 L, VLDL Cholesterol 23, HDL C
[2022-05-12 11:00] LABS: Microscopic, Urine URINE MICROSCOPIC (MICROSCOPIC)
[2022-05-12 11:54] LABS: Appearance,Urine CLEAR (Clear); Blood, Urine 2+ (Negative); Color,Urine AMBER (Yellow); Glucose,Urine (UA) 1+ (Negative); Ketones,Urine 1+ (Negative); Leukocyte Esterase,Urine Negative (Negative); Nitrate,Urine Negative (Negative); Protein,Urine 1+ (Negative); Specific Gravity, Urine >= 1.030 (1.005-1.030); Urobilinogen,Urine 0.2 EU/dl (0.2)
[2022-05-12 12:03] LABS: Bilirubin,Urine 1+ (Negative)
[2022-05-12 12:11] LABS: Bacteria,Urine 3+ /lpf
[2022-05-12 12:12] LABS: RBC,Urine Occasional #/hpf (0-3); Renal Epithelial Cells,Urine Occasional #/lpf (0); Squamous Epithelial Cell,Urine 20-50 #/hpf (0-5)
[2022-05-12 12:13] LABS: Hyaline Casts,Urine Occasional #/lpf (0)
--- NOTE | 2022-05-12 13:30 | CA_ITS ---
APPROVED REPORT EXAM: Comprehensive 2D, Doppler, and color-flow Echocardiogram Assurance Services Manager Health Care: Iliana Ariza RVT Ht: 5 ft 8 in Wt: 199lbs BSA: 2.04 BP: 128/80 mmHg Indications: TACHYCARDIA,GERD,EX SMOKER,PANCREATITIS 2D Dimensions LVOT 1.92 cm (M/F) 1.5-2.5 M-Mode Dimensions RVDd 1.44 cm (0.9-2.6) LA Diam 3.04 cm (1.9-4.0) LVDd 3.42 cm (3.5-5.7) Ao Diam 3.38 cm (2.0-3.7) LVDs 2.18 cm (3.5-5.7) IVSd 1.01 cm (0.6-1.1) PWd 1.04 cm (0.6-1.1) EF (Teich) 67.20% FS 36.30% EDV (Teich) 48.10 mL ESV (Teich) 15.80 mL LV Diastology MED E' 6.10 (< 7 cm/sec) LAT E' 6.00 (<10 cm/sec) Aortic Valve AO Peak GR. 5.80 mmHg Pulmonary Valve PV Peak Velocity 156.00 (50-150 cm/s) Left Ventricle Left atrium normal size left ventricle is normal size, hyperdynamic left ventricular systolic function, estimated ejection fraction 55% with no regional wall motion abnormality, Doppler evidence of high cardiac output state seen. Right Ventricle Right atrium and right ventricle are normal size and contractility. Aortic Valve Aortic valve is grossly normal. There is no aortic stenosis aortic insufficiency. Mitral Valve Mitral valve grossly normal, there is no mitral stenosis or mitral regurgitation. Tricuspid Valve Tricuspid valve grossly normal, there is no tricuspid stenosis, there is no significant tricuspid regurgitation seen. Pulmonic Valve Pulmonic valve is poorly visualized. Great Vessels Aortic root is normal size. Inferior vena cava is poorly visualized. 1. Pericardium No significant pericardial effusion noted. Conclusion 1. Normal left ventricular size, hyperdynamic left ventricular systolic function. Estimated ejection fraction 55% with no regional wall motion abnormality, Doppler evidence of high cardiac output state. 2. Trace mitral and tricuspid regurgitation. 3. No significant pericardial effusion noted. 4. Inferior vena cava is poorly visualized. Electronically signed by : Samm Cardenas MD 05/12/2022 15:11:40
--- NOTE | 2022-05-12 14:17 | PC.NURSE ---
late entry: did assist radiology with transferring patient to and from ct. patient tolerated well. she had no complaints during. heart rate did get up to 140 upon stqanding but did go back down. majority of time it was 120s. noted to have stable bp, slight drop noted with standing. brought back to floor in stable condition given cranberry juice and Popsicle.
--- NOTE | 2022-05-12 16:05 | PC.NURSE ---
Pt is alert and oriented x4. Lungs are clear, bowel sounds active x4. She reports abdominal pain rated 7/10. PRN pain meds administered x1 with relief noted on reassessment. She was up to the chair for a few hours and tolerated well. She's been sinus tach on telemetry w/HR up to the 140's at times. Diltiazem drip turned off per cardiology request. Tolerating her clear liquid diet fair. She is currently resting in bed with her eyes closed. Family is at bedside. Bed is locked and in the lowest position, call light is within reach.
--- NOTE | 2022-05-12 17:40 | PC.NURSE ---
pt had 1 unmeasured void
[2022-05-13] VITALS (35 sets, daily range): BP systolic 70–123; BP diastolic 36–69; PULSE 85–118; RESP 12–38; TEMP 36.6–37.3; O2SAT 85–98; BMI 29.5
--- NOTE | 2022-05-13 | PC.NURSE ---
not automatic b/p reading 70/40; rechecked 70/44; pt asymptomatic and sitting up in chair, b/p checked manual cuff auscultation 70/50; pr 97; pt alert and oriented x4, pt sleeping at time up in chair, dr motta paged to inform
--- NOTE | 2022-05-13 05:32 | PC.NURSE ---
pt was somewhat restless through the night, pt was up to chair for several hours, b/p noted to be low sbp 70 s with maps 51-56; dr motta aware, pt medicated x2 for pain rated 6-8/10; medicated x1 for nausea, pt is alert and oriented, pt remains in nsr to sinus tach; hr has been below 115; 02 placed at 2l for 02 sats less than 89% on room air, lung sounds clear and diminished, pt complains pain in sides more than abdomen, at bedside, no other issues or concerns at this time.
[2022-05-13 08:07] LABS: Alanine Aminotransferase 23 U/L (12-78); Albumin Level 2.2 g/dl (3.5-5.0); Alkaline Phosphatase 52 U/L (38-126); Aspartate Amino Transferase 51 U/L (14-36); Blood Urea Nitrogen 41 mg/dl (7-17); Calcium 6.3 mg/dl (8.4-10.2); Carbon Dioxide 14 mmol/L (22.0-30.0); Chloride 101 mmol/L (98-107); Creatinine Clearance Estimated 57 mL/min (50-200); Estimated Glomerular Filt Rate 30 ml/min (>60); GFR (African American) 36 ML/MIN (>60); Globulin 2.1 g/dL (1.3-3.2); Glucose 200 mg/dl (74-100); Sodium 126 mmol/L (136-145); Total Protein,Serum 4.3 g/dl (6.3-8.2)
--- NOTE | 2022-05-13 09:00 | EXP.ACUTE.PN ---
Subjective *Date: 05/13/22 *Time: 09:09 Interval history: Patient continues not to feel well. During the night she had to be placed on 3 L of oxygen due to desaturations. She was able to be weaned off of the Cardizem drip and her heart rate is stable. Her blood pressure has been low. She continues with some mid abdominal pain with any movement. She did try to eat clear liquids yesterday and had some dry heaving. Medical Exam Vital signs and Labs for Last 24 Hours: Temp Pulse Resp BP Pulse Ox 97.8 F 94 H 19 89/56 L 91 L 05/13/22 08:00 05/13/22 06:00 05/13/22 06:00 05/13/22 06:00 05/13/22 06:00 Laboratory Results - last 24 hr 05/12/22 05:45: Total Counted 100, Neutrophils % (Manual) 93 H, Lymphocytes % (Manual) 4 L, Monocytes % (Manual) 3, Platelet Estimate Normal, RBC Morphology Normal 05/12/22 10:25: Urine Color Suzi, Urine Appearance Clear, Urine pH 6.0, Ur Specific [place] >= 1.030, Urine Protein 1+, Urine Glucose (UA) 1+, Urine Ketones 1+, Urine Blood 2+, Urine Nitrate Negative, Urine Bilirubin 1+ A, Urine Urobilinogen 0.2, Ur Leukocyte Esterase Negative, Urine RBC Occasional, Urine WBC 3-5, Ur Squamous Epith Cells 20-50, Ur Renal Epithelial Cell Occasional, Urine Bacteria 3+, Hyaline Casts Occasional 05/13/22 06:55: Sodium 126 L, Potassium 5.0, Chloride 101, Carbon Dioxide 14 L, Anion Gap 16.0 H, BUN 41 H D, Creatinine 1.90 H D, Estimated Creat Clear 57, Estimated GFR 30 L, Est GFR ( Amer) 36 L D, Glucose 200 H, Calcium 6.3 L, Total Bilirubin 1.0, AST 51 H, ALT 23 D, Alkaline Phosphatase 52, Total Protein 4.3 L, Albumin 2.2 L D, Globulin 2.1, Albumin/Globulin Ratio 1.0 L I & O for Labs for Last 24 Hours: Intake & Output 05/10/22 05/11/22 05/12/22 05/13/22 11:59 11:59 11:59 11:59 Intake Total 1655 / 1655 1367 / 1367 3245 / 3245 Output Total 250 / 250 0 / 0 200 / 200 Balance 1405 / 1405 1367 / 1367 3045 / 3045 Weight 190 lb 8 oz 199 lb 9 oz 195 lb 1.745 oz Constitutional: Present no acute distress (Does not appear to feel well) Respiratory: Present CTA bilaterally Cardiac: Present Reg Rate and Rhythm GI: Present soft and tenderness (mid abdomen); Absent distention Extremities: Absent edema Skin: Present pallor Neuro: Present alert and awake Assessment and Plan *Assessment and plan (1) Acute pancreatitis: Status: Acute Category: Medical Code(s): K85.90 - Acute pancreatitis without necrosis or infection, unspecified (2) Cholelithiasis: Status: Acute Category: Medical Code(s): K80.20 - Calculus of gallbladder without cholecystitis without obstruction (3) Leukocytosis: Status: Acute Category: Medical Code(s): D72.829 - Elevated white blood cell count, unspecified (4) Elevated glucose: Status: Acute Category: Medical Code(s): R73.09 - Other abnormal glucose (5) Elevated bilirubin: Status: Acute Category: Medical Code(s): R17 - Unspecified jaundice (6) Elevated LFTs: Status: Acute Category: Medical Code(s): R79.89 - Other specified abnormal findings of blood chemistry (7) History of IBS: Status: Chronic Category: Medical Code(s): Z87.19 - Personal history of other diseases of the digestive system (8) GERD (gastroesophageal reflux disease): Status: Chronic Category: Medical Code(s): K21.9 - Gastro-esophageal reflux disease without esophagitis (9) SVT (supraventricular tachycardia): Status: Acute Category: Medical Code(s): I47.1 - Supraventricular tachycardia Plan Still awaiting some lab results from this morning. Sodium has returned low at 126. Creatinine has elevated to 1.9. Glucose is elevated as well. AST has improved. Lipase has increased to 9131. Chest CTA from yesterday showed no definitive PE. There was bibasilar consolidation and moderate pleural effusions. There was moderate ascites in the upper abdomen a
[2022-05-13 09:17] LABS: Basophils # 0.1 K/mm3 (0-0.2); Basophils % 0.3 % (0.1-2.0); Eosinophils # 0.2 K/mm3 (0.0-0.4); Eosinophils % 0.7 % (0.1-12.0); Hematocrit 37.6 % (37.0-47.0); Hemoglobin 12.2 g/dL (12.2-16.2); Lymphocytes # 1.2 K/mm3 (0.7-4.5); Lymphocytes % 3.5 % (10-50); Mean Corpuscular HGB Conc 32.6 g/dL (31.8-35.4); Mean Corpuscular Volume 95.2 fl (81-99); Mean Platelet Volume 9.9 fl (7.4-10.4); Monocytes % 2.8 % (1.7-9.3); Neutrophils # 32.9 K/mm3 (1.8-7.8); Neutrophils % 92.7 % (37.0-80.0); Platelet Count 216 K/mm3 (142-424); Red Blood Count 3.95 M/mm3 (4.20-5.40); Red Cell Distribution Width 13.4 % (11.5-17.5); White Blood Count 35.5 K/mm3 (4.8-10.8)
[2022-05-13 09:18] LABS: MANUAL DIFFERENTIAL MANUAL DIFFERENTIAL (MANUAL DIFF)
[2022-05-13 09:39] LABS: Amylase 2071 U/L (30-110)
[2022-05-13 09:53] LABS: Lipase 4565 U/L (23-300)
--- NOTE | 2022-05-13 09:55 | PC.NURSE ---
Received call from lab reporting lipase [id number]. Name and verified. Dr. Lee aware.
[2022-05-13 10:50] LABS: Lymphocytes % 10 % (10-50); Monocytes % 1 % (2-9); Neutrophils % 84 % (42-76); Total Cells Counted 100
[2022-05-13 10:51] LABS: Platelet Estimate Normal; RBC Morphology Normal
--- NOTE | 2022-05-13 11:44 | PC.NURSE ---
Dopamine gtt started @ 2.5mcg/kg/min.
--- NOTE | 2022-05-13 11:45 | PC.NURSE ---
pt refusing to wear O2.
--- NOTE | 2022-05-13 13:40 | PC.NURSE ---
pt sitting in chair. Continues to refuse to wear O2.
--- NOTE | 2022-05-13 21:22 | PC.NURSE ---
1999-bp 123/62, decreased dopamine drip to 13mcg/kg/min 2029-bp 86/55, increased dopamine drip to 14mcg/kg/min 2099-bp 86/52, increased dopamine drip to 15mcg/kg/min
--- NOTE | 2022-05-13 23:39 | PC.NURSE ---
bp 110/65, decreased dopamine drip to 14mcg/kg/min
[2022-05-14] VITALS (24 sets, daily range): BP systolic 93–157; BP diastolic 43–97; PULSE 107–135; RESP 18–37; TEMP 36.5–37.3; O2SAT 90–100; BMI 29.9
[2022-05-14 07:01] LABS: Basophils # 0.1 K/mm3 (0-0.2); Basophils % 0.2 % (0.1-2.0); Eosinophils # 0.2 K/mm3 (0.0-0.4); Eosinophils % 0.5 % (0.1-12.0); Hematocrit 31.4 % (37.0-47.0); Lymphocytes # 0.8 K/mm3 (0.7-4.5); Lymphocytes % 2.9 % (10-50); Mean Corpuscular HGB Conc 34.9 g/dL (31.8-35.4); Mean Corpuscular Hemoglobin 33.4 pg (27.0-31.2); Mean Corpuscular Volume 95.5 fl (81-99); Mean Platelet Volume 9.4 fl (7.4-10.4); Monocytes % 3.3 % (1.7-9.3); Neutrophils # 26.9 K/mm3 (1.8-7.8); Neutrophils % 93.1 % (37.0-80.0); Platelet Count 249 K/mm3 (142-424); Red Blood Count 3.29 M/mm3 (4.20-5.40); Red Cell Distribution Width 13.6 % (11.5-17.5); White Blood Count 28.9 K/mm3 (4.8-10.8)
[2022-05-14 07:11] LABS: Alanine Aminotransferase 23 U/L (12-78); Albumin Level 2.4 g/dl (3.5-5.0); Alkaline Phosphatase 54 U/L (38-126); Amylase 1132 U/L (30-110); Anion Gap 17.4 mEq/L (5-15); Aspartate Amino Transferase 44 U/L (14-36); Bilirubin,Total 0.7 mg/dl (0.2-1.3); Blood Urea Nitrogen 34 mg/dl (7-17); Calcium 6.9 mg/dl (8.4-10.2); Carbon Dioxide 15 mmol/L (22.0-30.0); Chloride 100 mmol/L (98-107); Creatinine Clearance Estimated 73 mL/min (50-200); Estimated Glomerular Filt Rate 39 ml/min (>60); GFR (African American) 48 ML/MIN (>60); Globulin 2.5 g/dL (1.3-3.2); Glucose 279 mg/dl (74-100); Potassium 4.4 mmoL/L (3.5-5.1); Sodium 128 mmol/L (136-145); Total Protein,Serum 4.9 g/dl (6.3-8.2)
[2022-05-14 07:14] LABS: Lipase 1942 U/L (23-300)
--- NOTE | 2022-05-14 07:15 | PC.NURSE ---
received call from lab reporting lipase 1941 and amylase 1131. Name and verified. Dr. Lee updated.
[2022-05-14 07:31] LABS: MANUAL DIFFERENTIAL MANUAL DIFFERENTIAL (MANUAL DIFF)
--- NOTE | 2022-05-14 08:50 | PC.NURSE ---
HR 120s sustained with no activity. Metoprolol 5mg IV given. HR now 100-110. BP 93/61 (70) 5 min after Metoprolol given.
[2022-05-14 09:38] LABS: Lymphocytes % 3 % (10-50); Monocytes % 2 % (2-9); Neutrophils % 95 % (42-76); Total Cells Counted 100
[2022-05-14 09:39] LABS: Platelet Estimate Normal; RBC Morphology Normal
--- NOTE | 2022-05-14 10:40 | EXP.ACUTE.PN ---
Subjective *Date: 05/14/22 *Time: 13:04 Interval history: Patient states she is not feeling well this morning. She feels very anxious and does not want to be left alone. She is having some pain in the lower abdomen, but the pain in the upper abdomen has improved. She states she does hurt in her back and feels like she has a UTI. Her heart rate has been in the 120s and 130s. She was given a one-time dose of metoprolol which decreased her rate into the lower 100s. It is back up this morning in the 120's. She continues on a dopamine drip due to low blood pressure. Medical Exam Vital signs and Labs for Last 24 Hours: Temp Pulse Resp BP Pulse Ox 98.3 F 121 H 21 128/69 97 05/14/22 08:00 05/14/22 10:00 05/14/22 10:00 05/14/22 10:00 05/14/22 10:00 Laboratory Results - last 24 hr 05/13/22 08:50: Total Counted 100, Neutrophils % (Manual) 84 H, Band Neutrophils % 4.0, Lymphocytes % (Manual) 10, Atypical Lymphs % 1.0, Monocytes % (Manual) 1 L, Platelet Estimate Normal, RBC Morphology Normal 05/14/22 06:35: WBC 28.9 H*, RBC 3.29 L, Hgb 11.0 L, Hct 31.4 L, MCV 95.5, MCH 33.4 H, MCHC 34.9, RDW 13.6, Plt Count 249, MPV 9.4, Neut % (Auto) 93.1 H, Lymph % (Auto) 2.9 L, [place] % (Auto) 3.3, Eos % (Auto) 0.5, Baso % (Auto) 0.2, Neut # (Auto) 26.9 H, Lymph # (Auto) 0.8, [place] # (Auto) 1.0, Eos # (Auto) 0.2, Baso # (Auto) 0.1, Total Counted 100, Neutrophils % (Manual) 95 H, Lymphocytes % (Manual) 3 L, Monocytes % (Manual) 2, Platelet Estimate Normal, RBC Morphology Normal 05/14/22 06:35: Sodium 128 L, Potassium 4.4, Chloride 100, Carbon Dioxide 15 L, Anion Gap 17.4 H, BUN 34 H, Creatinine 1.50 H D, Estimated Creat Clear 73, Estimated GFR 39 L, Est GFR ( Amer) 48 L D, Glucose 279 H D, Calcium 6.9 L, Total Bilirubin 0.7, AST 44 H, ALT 23, Alkaline Phosphatase 54, Total Protein 4.9 L, Albumin 2.4 L, Globulin 2.5, Albumin/Globulin Ratio 1.0 L, Amylase 1132 H*, Lipase 1942 H I & O for Labs for Last 24 Hours: Intake & Output 05/11/22 05/12/22 05/13/22 05/14/22 11:59 11:59 11:59 11:59 Intake Total 1655 / 1655 1367 / 1367 3245 / 3245 5108 / 5108 Output Total 250 / 250 0 / 0 400 / 400 1050 / 1050 Balance 1405 / 1405 1367 / 1367 2845 / 2845 4058 / 4058 Weight 190 lb 8 oz 199 lb 9 oz 195 lb 1.745 oz 197 lb 9.499 oz Microbiology Reports for the Last 24 Hours: Microbiology 05/12/22 10:25 Urine,Clean Catch Urine Culture - Final Multiple organisms, suggests contamination. Comment:: Does not appear to feel well Respiratory: Present decreased breath sounds Cardiac: Present Regular Rhythm and Tachycardia GI: Present soft and tenderness (lower abdomen); Absent distention, guarding or rebound Extremities: Absent edema Skin: Present pallor Neuro: Present alert and awake Assessment and Plan *Assessment and plan (1) Acute pancreatitis: Status: Acute Category: Medical Code(s): K85.90 - Acute pancreatitis without necrosis or infection, unspecified (2) Cholelithiasis: Status: Acute Category: Medical Code(s): K80.20 - Calculus of gallbladder without cholecystitis without obstruction (3) Leukocytosis: Status: Acute Category: Medical Code(s): D72.829 - Elevated white blood cell count, unspecified (4) Elevated glucose: Status: Acute Category: Medical Code(s): R73.09 - Other abnormal glucose (5) Elevated bilirubin: Status: Acute Category: Medical Code(s): R17 - Unspecified jaundice (6) Elevated LFTs: Status: Acute Category: Medical Code(s): R79.89 - Other specified abnormal findings of blood chemistry (7) History of IBS: Status: Chronic Category: Medical Code(s): Z87.19 - Personal history of other diseases of the digestive system (8) GERD (gastroesophageal reflux disease): Status: Chronic Category: Medical Code(s): K21.9 - Gastro-esophageal reflux disease w
[2022-05-14 11:02] LABS: Microscopic, Urine URINE MICROSCOPIC (MICROSCOPIC)
[2022-05-14 11:09] LABS: Appearance,Urine SL CLOUDY (Clear); Blood, Urine 3+ (Negative); Color,Urine YELLOW (Yellow); Glucose,Urine (UA) 1+ (Negative); Ketones,Urine 2+ (Negative); Leukocyte Esterase,Urine Negative (Negative); Nitrate,Urine Negative (Negative); Protein,Urine 1+ (Negative); Urobilinogen,Urine 0.2 EU/dl (0.2)
[2022-05-14 11:30] LABS: Bilirubin,Urine Negative (Negative)
[2022-05-14 11:36] LABS: Bacteria,Urine 1+ /lpf; Hyaline Casts,Urine Occasional #/lpf (0)
--- NOTE | 2022-05-14 14:00 | PC.NURSE ---
Dopamine gtt weaned OFF at this time
--- NOTE | 2022-05-14 18:39 | PC.NURSE ---
shift summary: GCS 15. Tachycardia sustained throughout shift (HR 110-140s). Tachypnea with RR mostly in the 20-30s. Labored breathing @ times. Pt reports increased anxiety, dyspnea, and pain located in lower abdomen and lower back. Low back pain is chronic. Requested Dilaudid Q4 ATC. Also received Metoprolol 5mg IV x 2, Phenergan 25mg IV x1, Tylenol 650mg x1, and Ativan 0.25mg tab x1. Pt reports that nothing eases her symptoms. Appetite is poor. No n/v/ this shift. 1 episode of diarrhea. Repeat urine specimen sent to lab. Dopamine gtt has been off since 2pm. BP WNL. NS infusing @ 150mL/hr. Call light within reach. Family @ BS ATC.
--- NOTE | 2022-05-14 20:06 | PC.NURSE ---
ambulated pt in room and then pt sitting up in chair after walk
--- NOTE | 2022-05-14 23:53 | PC.NURSE ---
RN, another RN on floor, and clearing house clerk attempted to start second IV on pt without success
[2022-05-15] VITALS (19 sets, daily range): BP systolic 108–133; BP diastolic 56–78; PULSE 117–127; RESP 19–35; TEMP 36.6–38.4; O2SAT 88–100; BMI 34.4
--- NOTE | 2022-05-15 03:24 | PC.NURSE ---
pt's oxygen saturations when resting 83-86% RA, placed pt on 3LNC, oxygen saturations 88-92% on 3LNC
--- NOTE | 2022-05-15 05:20 | PC.NURSE ---
pt did not rest this shift, pt very restless, pt tachypneic and oxygen saturations decrease when pt not 45 degrees or higher, pt requires oxygen when laying below 45 degrees but pt does not want to wear the oxygen states makes it worse ; got pt up to chair at this time to help with ease of breathing, when pt up in chair sats 96% on RA, RR 19 at this time but work of breathing is still labored, pt's lung sounds are clear to diminished, pt has confusion intermittently and most often cannot answer where she is when asked, HR 120's-130's when in bed, but when pt up to chair HR 115-119, pt still c/o pain somewhat relieved with prn pain medications, pt ambulated in room at beginning of shift with this RN but now pt very weak whenever getting pt to bsc or chair and needing 2 assists to get OOB, pt with adequate UOP but concentrated, no bowel movement this shift, pt's family at bedside assisting with care, pull alarm on pt while up in chair, call light within reach
[2022-05-15 06:38] LABS: Alanine Aminotransferase 23 U/L (12-78); Albumin Level 2.6 g/dl (3.5-5.0); Alkaline Phosphatase 59 U/L (38-126); Amylase 576 U/L (30-110); Anion Gap 20.7 mEq/L (5-15); Aspartate Amino Transferase 35 U/L (14-36); Bilirubin,Total 0.6 mg/dl (0.2-1.3); Blood Urea Nitrogen 29 mg/dl (7-17); Calcium 7.6 mg/dl (8.4-10.2); Carbon Dioxide 15 mmol/L (22.0-30.0); Chloride 100 mmol/L (98-107); Creatinine Clearance Estimated 84 mL/min (50-200); Estimated Glomerular Filt Rate 39 ml/min (>60); GFR (African American) 48 ML/MIN (>60); Globulin 2.6 g/dL (1.3-3.2); Glucose 223 mg/dl (74-100); Potassium 4.7 mmoL/L (3.5-5.1); Sodium 131 mmol/L (136-145); Total Protein,Serum 5.2 g/dl (6.3-8.2)
[2022-05-15 06:48] LABS: Basophils # 0.1 K/mm3 (0-0.2); Basophils % 0.3 % (0.1-2.0); Eosinophils % 0.1 % (0.1-12.0); Hematocrit 30.6 % (37.0-47.0); Lymphocytes # 0.9 K/mm3 (0.7-4.5); Mean Corpuscular HGB Conc 32.1 g/dL (31.8-35.4); Mean Corpuscular Volume 96.5 fl (81-99); Mean Platelet Volume 9.2 fl (7.4-10.4); Monocytes # 0.8 K/mm3 (0.1-1.0); Monocytes % 3.5 % (1.7-9.3); Neutrophils # 21.2 K/mm3 (1.8-7.8); Neutrophils % 92.1 % (37.0-80.0); Platelet Count 244 K/mm3 (142-424); Red Blood Count 3.17 M/mm3 (4.20-5.40); Red Cell Distribution Width 13.7 % (11.5-17.5)
[2022-05-15 06:58] LABS: MANUAL DIFFERENTIAL MANUAL DIFFERENTIAL (MANUAL DIFF)
[2022-05-15 06:59] LABS: Hemoglobin 9.8 g/dL (12.2-16.2)
[2022-05-15 07:08] LABS: Lipase 672 U/L (23-300)
--- NOTE | 2022-05-15 07:18 | PC.NURSE ---
notified MD Lee of pt's critical lipase of 713
[2022-05-15 07:31] LABS: Lymphocytes % 3 % (10-50); Monocytes % 3 % (2-9); Neutrophils % 94 % (42-76); Total Cells Counted 100
[2022-05-15 07:32] LABS: Platelet Estimate Normal; RBC Morphology Normal
[2022-05-15 07:56] LABS: Peripheral Smear Review Scanned Result
--- NOTE | 2022-05-15 09:05 | XR_ITS ---
FINAL REPORT CLINICAL HISTORY: Shortness of breath COMPARISON: CT dated May 12, 2022 FINDINGS: SINGLE VIEW CHEST The heart is normal in size. The mediastinum is unremarkable. There are moderate sized bilateral pleural effusions. There is moderate compressive atelectasis. There is no pneumothorax. IMPRESSION: Findings slightly worse from CT. Reviewed, Interpreted and Dictated by Maria Eugenia Wheeler MD Transcribed by Fely Hollingsworth Authenticated and [facility]
--- NOTE | 2022-05-15 09:31 | EXP.PN ---
Subjective *Date: 05/15/22 *Time: 11:33 Interval history: Patient continues not to feel well. Friend has been staying with her and her went home to sleep. She states she is more comfortable in the recliner. She seems to be less restless and sleep some at intervals. Patient denies nausea. She denies chest pain and shortness of breath. Nursing states she is off her dopamine drip since yesterday p.m. Blood pressures has been stable. She remains tachycardic. She is afebrile .BUN and creatinine are stable at 29/1.5. Amylase has improved from 1132-576. Lipase has improved from 1942-672. Exam Data for Last 24 hours Vital signs and Labs for Last 24 Hours: Temp Pulse Resp BP Pulse Ox 97.8 F 118 H 19 109/62 L 94 L 05/15/22 08:00 05/15/22 06:00 05/15/22 06:00 05/15/22 06:00 05/15/22 06:00 Laboratory Results - last 24 hr 05/14/22 06:35: Total Counted 100, Neutrophils % (Manual) 95 H, Lymphocytes % (Manual) 3 L, Monocytes % (Manual) 2, Platelet Estimate Normal, RBC Morphology Normal 05/14/22 10:50: Urine Color Yellow, Urine Appearance Sl cloudy, Urine pH 6.0, Ur Specific [place] 1.020, Urine Protein 1+, Urine Glucose (UA) 1+, Urine Ketones 2+, Urine Blood 3+, Urine Nitrate Negative, Urine Bilirubin Negative, Urine Urobilinogen 0.2, Ur Leukocyte Esterase Negative, Urine RBC 3-5, Urine WBC 5-10, Ur Squamous Epith Cells 10-20, Urine Bacteria 1+, Hyaline Casts Occasional, Fine Granular Casts 3-5 05/15/22 06:15: WBC 23.0 H*, RBC 3.17 L, Hgb 9.8 L D, Hct 30.6 L, MCV 96.5, MCH 31.0, MCHC 32.1, RDW 13.7, Plt Count 244, MPV 9.2, Neut % (Auto) 92.1 H, Lymph % (Auto) 4.0 L, [place] % (Auto) 3.5, Eos % (Auto) 0.1, Baso % (Auto) 0.3, Neut # (Auto) 21.2 H, Lymph # (Auto) 0.9, [place] # (Auto) 0.8, Eos # (Auto) 0.0, Baso # (Auto) 0.1, Total Counted 100, Neutrophils % (Manual) 94 H, Lymphocytes % (Manual) 3 L, Monocytes % (Manual) 3, Platelet Estimate Normal, RBC Morphology Normal 05/15/22 06:15: Sodium 131 L, Potassium 4.7, Chloride 100, Carbon Dioxide 15 L, Anion Gap 20.7 H, BUN 29 H, Creatinine 1.50 H, Estimated Creat Clear 84, Estimated GFR 39 L, Est GFR ( Amer) 48 L, Glucose 223 H D, Calcium 7.6 L, Total Bilirubin 0.6, AST 35, ALT 23, Alkaline Phosphatase 59, Total Protein 5.2 L, Albumin 2.6 L, Globulin 2.6, Albumin/Globulin Ratio 1.0 L, Amylase 576 H* D, Lipase 672 H I & O for Last 24 hours: Intake & Output 05/12/22 05/13/22 05/14/22 05/15/22 11:59 11:59 11:59 11:59 Intake Total 1367 / 1367 3245 / 3245 5108 / 5108 1805 / 1805 Output Total 0 / 0 400 / 400 1050 / 1050 1100 / 1100 Balance 1367 / 1367 2845 / 2845 4058 / 4058 705 / 705 Weight 199 lb 9 oz 195 lb 1.745 oz 197 lb 9.499 oz 226 lb 13.69 oz Microbiology Reports for the Last 24 Hours: Microbiology 05/12/22 10:25 Urine,Clean Catch Urine Culture - Final Multiple organisms, suggests contamination. Constitutional Constitutional: no acute distress and somnolent (Is receiving IV Dilaudid for pain.) *Routine Respiratory Exam Respiratory: Present CTA bilaterally *Routine Cardiovascular Exam Cardiovascular: Present RRR and tachycardia (Monitor showing sinus tach between 110 and 120) *Routine Abdominal Exam Abdominal: Present soft and normoactive bowel sounds; Absent tenderness or distended *Routine Extremities Exam Extremities: Absent edema *Routine Neurological Exam Neurological: Present alert Comments: Somnolent after pain medicine Assessment and Plan *Assessment and plan (1) Acute pancreatitis: Status: Acute Category: Medical Code(s): K85.90 - Acute pancreatitis without necrosis or infection, unspecified (2) SVT (supraventricular tachycardia): Status: Acute Category: Medical Code(s): I47.1 - Supraventricular tachycardia (3) Elevated LFTs: Status: Acute Category: Medical Code(s): R79.89 - Other specified abnormal findings of blood chemistry (4) History of IBS: Sta
--- NOTE | 2022-05-15 10:15 | PC.NURSE ---
During bedside report, pt was alert and oriented x 4. during assessment and medication pass, pt became confused and refused medications. states that she does not trust staff, wanted to speak with all of her physicians before she would take any medications. Izabela Witt was notified and came to bedside to assist diffuse situation. pt eventually agreed to take abx and lasix but didnt want any other medications. family friend is at bedside.
--- NOTE | 2022-05-15 11:31 | PC.NURSE ---
received phone call from Izabela Witt with telephone orders to dc lorazepam [id number]
--- NOTE | 2022-05-15 13:31 | PC.NURSE ---
Message left with Izabela Witt asking if pt is to still have IVF infusing or if she is to be saline locked [id number] Dr Lee called to check on pt at 1330 and stated to decrease ivf to 75, but if staff is unable to resume ivf at this time r/t pt confusion and being uncooperative that it is ok to leave the ivf off for a while.
--- NOTE | 2022-05-15 14:32 | PC.NURSE ---
rounded on patient. patient is noted to be slightly anxious, and stating she is unable to get comfortable. assisted patient to chair and provided repositioning and pillows. does seem to fall asleep quickly but arouses quickly as well. friend is at bedside. patient face is noted to be slightly red. swelling noted to arms and legs. patient has no other complaints besides being unable to get comfortable. no other concerns. encouraged her and family to ring out as needed.
--- NOTE | 2022-05-15 19:36 | PC.NURSE ---
Addendum entered by Savannah Limon RN 05/15/22 19:40: weeping was noted this evening from pt left hand from a previous needle stick site. Original Note: late entry: patient has been up to the chair all shift, she was able to go to bed for approx 30mins this shift, but was too uncomfortable so asked to get back up to the chair. pt has been less confused than this am when she was refusing all of her medications and was untrusting of the staff and her visitors in the room. lung sounds are clear, bowel sounds are active. nad noted. pt has had oral temps periodically throughout the shift, but was noted to still be warm/hot in temperature. temp was checked axillary was noted to be 101.2. pt was medicated with tylenol. pt appears more relaxed when is in the room with her as opposed to any other visitor.
--- NOTE | 2022-05-15 21:40 | PC.NURSE ---
pt's came to get this RN, pt anxious and cannot get comfortable, pt in bed upon entering room, this RN and pt's repositioned pt, pt's HR 140's sustained, prn metoprolol given, pt's HR back to 112-119 and pt more relaxed trying to rest in bed
[2022-05-16] VITALS (8 sets, daily range): BP systolic 111–155; BP diastolic 61–93; PULSE 110–140; RESP 20–34; TEMP 36.4–36.9; O2SAT 98–100; BMI 34.4
--- NOTE | 2022-05-16 08:48 | EXP.PN ---
Subjective *Date: 05/16/22 *Time: 08:48 Interval history: Patient had a little better night last night. She complains of some back pain and leg pain, no abdominal pain. She ate a few bites of full liquids yesterday. Patient did have a fever last night. Exam Data for Last 24 hours Vital signs and Labs for Last 24 Hours: Temp Pulse Resp BP Pulse Ox 98.1 F 124 H 27 H 130/62 100 05/16/22 04:00 05/16/22 06:00 05/16/22 06:00 05/16/22 06:00 05/16/22 06:00 I & O for Last 24 hours: Intake & Output 05/13/22 05/14/22 05/15/22 05/16/22 23:59 23:59 23:59 23:59 Intake Total 3693 / 3693 4458 / 4458 360 / 360 0 / 0 Output Total 1350 / 1350 400 / 400 2600 / 2600 700 / 700 Balance 2343 / 2343 4058 / 4058 -2240 / -2240 -700 / -700 Weight 195 lb 1.745 oz 197 lb 9.499 oz 226 lb 13.69 oz 226 lb 13.69 oz Microbiology Reports for the Last 24 Hours: Microbiology 05/14/22 10:50 Urine,Clean Catch Urine Culture - Preliminary NO GROWTH AFTER 24 HOURS Constitutional Constitutional: cooperative *Routine Respiratory Exam Respiratory: Present distant breath sounds *Routine Cardiovascular Exam Cardiovascular: Present RRR and tachycardia *Routine Abdominal Exam Abdominal: Present normoactive bowel sounds; Absent tenderness Assessment and Plan *Assessment and plan (1) Acute pancreatitis: Status: Acute Category: Medical Code(s): K85.90 - Acute pancreatitis without necrosis or infection, unspecified (2) SVT (supraventricular tachycardia): Status: Acute Category: Medical Code(s): I47.1 - Supraventricular tachycardia (3) Elevated LFTs: Status: Acute Category: Medical Code(s): R79.89 - Other specified abnormal findings of blood chemistry (4) History of IBS: Status: Chronic Category: Medical Code(s): Z87.19 - Personal history of other diseases of the digestive system (5) GERD (gastroesophageal reflux disease): Status: Chronic Category: Medical Code(s): K21.9 - Gastro-esophageal reflux disease without esophagitis (6) Leukocytosis: Status: Acute Category: Medical Code(s): D72.829 - Elevated white blood cell count, unspecified (7) Hypotension: Status: Acute Category: Medical Code(s): I95.9 - Hypotension, unspecified (8) Fever: Status: Acute Category: Medical Code(s): R50.9 - Fever, unspecified (9) Pleural effusion: Status: Acute Category: Medical Code(s): J90 - Pleural effusion, not elsewhere classified (10) Compression atelectasis: Status: Acute Category: Medical Code(s): J98.11 - Atelectasis Plan Patient is slowly improving. Off of all drips now, OK to move out of step down, AM labs pending, will give a dose of oral Lasix today.
--- NOTE | 2022-05-16 08:51 | EXP.PHA.PN ---
Subjective *Date: 05/16/22 *Time: 08:51 Medical Exam Vital signs and Labs for Last 24 Hours: Temp Pulse Resp BP Pulse Ox 98.1 F 124 H 27 H 130/62 100 05/16/22 04:00 05/16/22 06:00 05/16/22 06:00 05/16/22 06:00 05/16/22 06:00 I & O for Labs for Last 24 Hours: Intake & Output 05/13/22 05/14/22 05/15/22 05/16/22 23:59 23:59 23:59 23:59 Intake Total 3693 / 3693 4458 / 4458 360 / 360 0 / 0 Output Total 1350 / 1350 400 / 400 2600 / 2600 700 / 700 Balance 2343 / 2343 4058 / 4058 -2240 / -2240 -700 / -700 Weight 88.5 kg 89.627 kg 102.9 kg 102.9 kg Microbiology Reports for the Last 24 Hours: Microbiology 05/14/22 10:50 Urine,Clean Catch Urine Culture - Preliminary NO GROWTH AFTER 24 HOURS The patient's infection will respond to the chosen ABx?: Yes (URINE CULTURE NO GROWTH) Is the patient receiving the right drug, dose, and route?: Yes Could a more targeted ABx be ordered?: No
[2022-05-16 09:10] LABS: Basophils # 0.2 K/mm3 (0-0.2); Basophils % 0.6 % (0.1-2.0); Eosinophils # 0.1 K/mm3 (0.0-0.4); Eosinophils % 0.2 % (0.1-12.0); Hematocrit 34.3 % (37.0-47.0); Hemoglobin 10.7 g/dL (12.2-16.2); Lymphocytes # 0.9 K/mm3 (0.7-4.5); Lymphocytes % 3.8 % (10-50); Mean Corpuscular HGB Conc 31.2 g/dL (31.8-35.4); Mean Corpuscular Hemoglobin 30.5 pg (27.0-31.2); Mean Corpuscular Volume 97.6 fl (81-99); Mean Platelet Volume 8.4 fl (7.4-10.4); Monocytes # 0.7 K/mm3 (0.1-1.0); Monocytes % 2.7 % (1.7-9.3); Neutrophils # 23.4 K/mm3 (1.8-7.8); Neutrophils % 92.7 % (37.0-80.0); Platelet Count 321 K/mm3 (142-424); Red Blood Count 3.51 M/mm3 (4.20-5.40); White Blood Count 25.3 K/mm3 (4.8-10.8)
[2022-05-16 09:15] LABS: MANUAL DIFFERENTIAL MANUAL DIFFERENTIAL (MANUAL DIFF)
[2022-05-16 09:18] LABS: Chloride 102 mmol/L (98-107)
[2022-05-16 09:19] LABS: Potassium 3.9 mmoL/L (3.5-5.1); Sodium 133 mmol/L (136-145)
[2022-05-16 09:21] LABS: Alanine Aminotransferase 20 U/L (12-78); Alkaline Phosphatase 71 U/L (38-126); Amylase 194 U/L (30-110); Anion Gap 22.9 mEq/L (5-15); Aspartate Amino Transferase 35 U/L (14-36); Bilirubin,Total 0.8 mg/dl (0.2-1.3); Blood Urea Nitrogen 22 mg/dl (7-17); Carbon Dioxide 12 mmol/L (22.0-30.0); Creatinine Clearance Estimated 105 mL/min (50-200); Estimated Glomerular Filt Rate 51 ml/min (>60); GFR (African American) 62 ML/MIN (>60)
[2022-05-16 09:22] LABS: Albumin Level 2.7 g/dl (3.5-5.0); Albumin/Globulin Ratio 0.9 (1.1-1.8); Calcium 7.9 mg/dl (8.4-10.2); Globulin 2.9 g/dL (1.3-3.2); Glucose 286 mg/dl (74-100); Lipase 228 U/L (23-300); Total Protein,Serum 5.6 g/dl (6.3-8.2)
[2022-05-16 10:25] LABS: Lymphocytes % 7 % (10-50); Monocytes % 3 % (2-9); Neutrophils % 83 % (42-76); Nucleated Red Blood Cells 1; Total Cells Counted 100
[2022-05-16 10:26] LABS: Hypochromasia 1+; Platelet Estimate Normal; RBC Morphology Normal
--- NOTE | 2022-05-16 11:02 | DIET.NUTRFU ---
Addendum entered by Rhonda Mir RD, LD 05/16/22 12:33: Spoke to nursing, she reports patient is still having vomiting and not planning to advance diet, clear liquids continues. Original Note: Patient was reviewed by this RD due to clear liquid diet in place x3 days. She did try some full liquids yesterday with nursing supervision. Her IVF was last provided on 05/14 with a negative output of -2240ml. Weight is up to 102kg, with lasix ordered today and was also provided on 05/13 and 05/15. Admit wt was 86kg, fluid gains d/t previous IVF. Labs today are: Na 133L, K 3.9, BUN 22H, Cr 1.2H and glucose 189H. Lipase has improved from 7588 to now 228WNL. Dx of acute pancreatitis, Cholelithiasis, she does not trigger for nutritional assessment. Patient is at risk for malnutrition due to clear liquids is unable to meet nutritional needs. Will continue to follow, hopefully diet will be able to be advanced today to better met needs.
--- NOTE | 2022-05-16 12:59 | PC.NURSE ---
rounded on patient, assisted patient with bedside commode. no specific questions, all concerns addressed. patient does continue to have some confusion during this round, but does appear more clear headed than previous shift. remains swollen in legs. assisted patient back to chair, where she started to fall back to sleep. encouraged family/friend to let us know of any needs as they arise.
--- NOTE | 2022-05-16 15:46 | PC.NURSE ---
Pt is alert and oriented x4. She's been up to the chair this shift. She's complained of back and leg pain requiring tylenol x2. She also complained of nausea/dry heaving. Zofran has been administered once and phenergan once with favorable results noted on reassessment. She's had 2 loose stools. She's tolerating clear liquids fair, she would like something a little more filling . She's remained on RA with O2 sats measuring 100%. She's been sinus tach on telemetry. She has no other complaints at this time.
[2022-05-17] VITALS: BP 140/80; PULSE 120; PULSE 133; RESP 30; TEMP 36.4; O2SAT 100
[2022-05-17 04:00] VITALS: BP 128/72; PULSE 110; PULSE 118; RESP 30; TEMP 36.6; O2SAT 100
[2022-05-17 04:23] VITALS: BMI 34.4
--- NOTE | 2022-05-17 04:32 | PC.NURSE ---
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 pt tolerated well
--- NOTE | 2022-05-17 04:37 | PC.NURSE ---
no acute distress, pt is alert to name and place but has periods of confusion and hallucinations at times, lungs clear and diminished, 02 sats have been 100% on room air, telemetry reveals sinus tachycardia hr 115-130 and up to 150 at times, abdomen soft and tender, pt with frequent diarrhea stools green/brown in color, voiding without difficulty unable to measure due to mixed with stool, pt is incontinent of stool, 2+ generalized edema noted, BSS, skin pwd, iv came out to left ac and attempted x4 sticks unsuccessful, called for ultrasound assisted iv insertion if available.
--- NOTE | 2022-05-17 05:15 | PC.NURSE ---
er nurse TJ at bedside to attempt ultrasound IV
--- NOTE | 2022-05-17 05:47 | PC.NURSE ---
dr valentin called regarding no iv access at this time, pt has been stuck multiple times including 3 times by ultrasound trained RN unsuccessful and pt is complaining of nausea, note new orders for zofran 4mg po q6 hours as needed for nausea, 2nd er nurse at bedside at this time to attemp ultrasound iv
[2022-05-17 08:00] VITALS: BP 142/72; PULSE 119; PULSE 125; RESP 20; TEMP 36.4; O2SAT 98
--- NOTE | 2022-05-17 08:17 | EXP.ACUTE.PN ---
Subjective *Date: 05/17/22 *Time: 10:31 Interval history: Patient still not feeling well. Abdominal pain has improved. Still SOA and with tachycardia. Gets nauseated with food. Extremely weak. Had numerous episodes of diarrhea last night. Medical Exam Vital signs and Labs for Last 24 Hours: Temp Pulse Resp BP Pulse Ox 98 F 118 H 30 H 128/72 100 05/17/22 04:00 05/17/22 04:00 05/17/22 04:00 05/17/22 04:00 05/17/22 04:00 Laboratory Results - last 24 hr 05/16/22 08:48: WBC 25.3 H*, RBC 3.51 L, Hgb 10.7 L, Hct 34.3 L, MCV 97.6, MCH 30.5, MCHC 31.2 L, RDW 14.0, Plt Count 321 D, MPV 8.4, Neut % (Auto) 92.7 H, Lymph % (Auto) 3.8 L, [place] % (Auto) 2.7, Eos % (Auto) 0.2, Baso % (Auto) 0.6, Neut # (Auto) 23.4 H, Lymph # (Auto) 0.9, [place] # (Auto) 0.7, Eos # (Auto) 0.1, Baso # (Auto) 0.2, Total Counted 100, Neutrophils % (Manual) 83 H, Band Neutrophils % 5.0, Lymphocytes % (Manual) 7 L, Monocytes % (Manual) 3, Metamyelocytes % 2.0 H, Nucleated RBCs 1, Platelet Estimate Normal, RBC Morphology Normal, Hypochromasia 1+ 05/16/22 08:48: Sodium 133 L, Potassium 3.9, Chloride 102, Carbon Dioxide 12 L, Anion Gap 22.9 H, BUN 22 H, Creatinine 1.20 H, Estimated Creat Clear 105, Estimated GFR 51 L, Est GFR ( Amer) 62 D, Glucose 286 H, Calcium 7.9 L, Total Bilirubin 0.8, AST 35, ALT 20, Alkaline Phosphatase 71, Total Protein 5.6 L, Albumin 2.7 L, Globulin 2.9, Albumin/Globulin Ratio 0.9 L, Amylase 194 H, Lipase 228 I & O for Labs for Last 24 Hours: Intake & Output 05/14/22 05/15/22 05/16/22 05/17/22 11:59 11:59 11:59 11:59 Intake Total 5108 / 5108 1805 / 1805 600 / 675 675 / 675 Output Total 1050 / 1050 2100 / 2100 1600 / 1600 300 / 300 Balance 4058 / 4058 -295 / -295 -1000 / -925 375 / 375 Weight 197 lb 9.499 oz 226 lb 13.69 oz 226 lb 13.69 oz 226 lb 13.69 oz Microbiology Reports for the Last 24 Hours: Microbiology 05/14/22 10:50 Urine,Clean Catch Urine Culture - Final NO GROWTH AFTER 48 HOURS Comment:: Does not appear to feel well Respiratory: Present decreased breath sounds Cardiac: Present Regular Rhythm and Tachycardia GI: Present soft and tenderness (lower abdomen); Absent distention, guarding or rebound Extremities: Absent edema Skin: Present pallor Neuro: Present alert and awake Assessment and Plan *Assessment and plan (1) Acute pancreatitis: Status: Acute Category: Medical Code(s): K85.90 - Acute pancreatitis without necrosis or infection, unspecified (2) SVT (supraventricular tachycardia): Status: Acute Category: Medical Code(s): I47.1 - Supraventricular tachycardia (3) Elevated LFTs: Status: Acute Category: Medical Code(s): R79.89 - Other specified abnormal findings of blood chemistry (4) History of IBS: Status: Chronic Category: Medical Code(s): Z87.19 - Personal history of other diseases of the digestive system (5) GERD (gastroesophageal reflux disease): Status: Chronic Category: Medical Code(s): K21.9 - Gastro-esophageal reflux disease without esophagitis (6) Leukocytosis: Status: Acute Category: Medical Code(s): D72.829 - Elevated white blood cell count, unspecified (7) Hypotension: Status: Acute Category: Medical Code(s): I95.9 - Hypotension, unspecified (8) Fever: Status: Acute Category: Medical Code(s): R50.9 - Fever, unspecified (9) Pleural effusion: Status: Acute Category: Medical Code(s): J90 - Pleural effusion, not elsewhere classified (10) Compression atelectasis: Status: Acute Category: Medical Code(s): J98.11 - Atelectasis Plan Will get a dietary consult. She will need to be on a multivitamin and is requesting a dose of tylenol. Dr. Lee entry - Saw patient, agree with above note. She is slowly improving. Dietary consult today.
--- NOTE | 2022-05-17 10:14 | DIET.NUTRFU ---
Addendum entered by Rhonda Mir RD, JOSELYN 05/17/22 15:31: Consulted by nursing to upgrade diet, will upgrade to bland and use the phase one post pancreatitis diet list, dry crackers, banana and plain baked potato for dinner and then same for breakfast dry and bland- suggested oatmeal or dry cereal with no milk, Kyrgyz or bagel with little to no butter. RD will check in with patient after breakfast tomorrow to determine if she is ready for a simple protein like chicken or fish. Still waiting to add any dairy in. has handouts and will help her decide on breakfast. She was up in chair after therapy, feeling less nauseated. Addendum entered by Rhonda Mir RD, 05/17/22 11:09: reviewed handouts with , he mentioned they will have her gallbladder removed in a couple weeks, plan to follow a low fat diet up until sx and then there after fat in moderation. Original Note: RD consulted to review diet once able to advance past clear liquids. Upon visit patient still complaining of nausea and vomiting. She also complaining of lack of sleep due to unfamiliar surrounding. She has been tolerating Popsicle and jello the best. Had some applesauce in room today, but still not able to eat much. Patient considered about her B12 gummie she takes at home daily, provider indicated they were planning on starting MVI. She is considered she is not meeting nutritional needs. Boost clear could be added but was the nausea it maybe not tolerated. No labs to review from today. Her intake noted showed some improvement at 840ml from 460ml on 05/15. She is noted to have had a BM yesterday and today. Will provide and review handouts for pancreatitis- low fat diet.
[2022-05-17 10:30] VITALS: BMI 34.4
[2022-05-17 12:00] VITALS: BP 128/60; PULSE 118; PULSE 126; RESP 18; TEMP 36.6; O2SAT 97
--- NOTE | 2022-05-17 15:42 | HMH.PTEV ---
Physical Therapy Evaluation Rehab PT IP Evaluation Start: 05/17/22 14:25 Freq: .once Status: Active Protocol: Document 05/17/22 15:35 TONY (Rec: 05/17/22 15:42 TONY [id number]) Subjective/History History History This is the initial IP PT evaluation for Soco Griffiths. Pt is a 37 y/o female admitted to [facility] for pancreatitis and gall stones. Pt reports several days of N/ V/D prior to admission. Pt lives at home w/ , works and was fully I in all ADL's prior to hospitalizations - of note at rest pt pulse 133, upto 160 w/ standing, resp rate mid 30's to high 40's at rest and activity Subjective Subjective Pt c/o feeling weak, and having pain in B hips w/ mvmnt - pt also c/o severe swelling in BLE noted 1+ pitting edema in BLE up to lower thigh Rehab PT IP Eval Objective Appearance Patient Behavior Anxious,Fearful Patient Orientation Place,Name,Birthday,Year, Situation Difficulty following instructions none Speech Pattern Appropriate,Soft-Spoken Ambulation Patient Able to Ambulate Yes Ambulation Observation IP General Gait Pattern Observation Shuffling Step Ambulation Distance (feet) 4 Ambulation Assistive Device Rolling Walker Ambulation Ability Contact Guard/Hand Hold Balance Ability to Arise Able, uses arms to help Sitting Balance Steady, safe Standing Balance Steady, wide stance Dynamic Sitting Balance Ability Good Dynamic Standing Balance Ability Fair Transfers Bed Transfer Ability Contact Guard/Hand Hold Chair Transfer Ability Contact Guard/Hand Hold Sit to Stand Bed Transfer Ability Contact Guard/Hand Hold Sit to Stand Chair Transfer Ability Contact Guard/Hand Hold Rehab PT IP prob,goals,plan Problems Date of Evaluation: 05/17/22 PT IP Problems Bed Mobility,Transfers,Gait, Balance,Self care,Safety Rehab Potential Rehab Potential Fair Equipment Needs Assistive Devices Rolling / Wheeled Walker Plan PT Intervention Plan Bed Mobility,Transfers,Gait, Balance,Self care,Safety,
[2022-05-17 16:00] VITALS: BP 134/75; PULSE 110; PULSE 121; RESP 20; TEMP 36.9; O2SAT 97
--- NOTE | 2022-05-17 16:35 | HMH.OTEV ---
OT Inpatient Evaluation Rehab OT IP Evaluation Start: 05/17/22 14:25 Freq: ONCE Status: Complete Protocol: Document 05/17/22 16:23 [email or web address] (Rec: 05/17/22 16:35 [facility] [id number]) Rehab OT IP Assessment Subjective History Pt oriented x 4 on arrival. Pt agreeable to engage in therapy evaluation. Pt's present and supportive . Pt was admitted on 05/10/22 due to abdomina pain, vomiting , and pancreatitis. Prior to becoming ill she lived at home with her and 14 year old daughter. 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 She was also independent with all ADLs and IADLs. She did not require any type of AE during daily activities. The following information was copied from history and physical report: Ms. Griffiths is a 37-year-old female with a history of GERD and IBS who began vomiting this past Sunday. She states she vomited every day and her reflux seems to be worse. Yesterday around 3 PM she began having horrific mid abdominal pain. Her family states she vomited so profusely between 3 and 5:00 yesterday that she could hardly breathe. She was brought to the emergency room for evaluation. She was given morphine, Reglan, and famotidine in the ER and a CT of the abdomen and pelvis was performed. It showed acute pancreatitis as well as gallstones. Her white blood cell count was elevated at 34. 5 and her amylase was 5950 and lipase was 55,000. Her bilirubin was elevated at 1.9 and her AST was elevated at 128. She was admitted for further evaluation and
--- NOTE | 2022-05-17 18:56 | PC.NURSE ---
Pt is A/Ox4. Pt is very dependent upon staff. She has had a few watery BM today. We advanced diet to bland diet and is tolerating well. She has had no nausea medication today. is at bedside. Had a PT/OT eval today. She has used BSC, and has used walker with assist x1 to get to the bathroom. When she get up and ambulates her HR is elevated and MD is aware.
[2022-05-17 20:00] VITALS: BP 126/74; PULSE 120; PULSE 131; RESP 20; TEMP 36.9; O2SAT 98
[2022-05-18] VITALS (10 sets, daily range): BP systolic 120–156; BP diastolic 63–75; PULSE 110–135; RESP 16–24; TEMP 36.5–37.9; O2SAT 95–100; BMI 34.4
--- NOTE | 2022-05-18 05:05 | PC.NURSE ---
no acute distress, pt restless and up to chair a few times for comfort, pt states mattress is uncomfortable and back hurts and tylenol given as ordered, pt up to shower this am and did well, ambulated with walker with standby assist, pt assisted to shower, washed hair and pt stated she felt better after showering, lungs clear and diminished, 1-2+ generalized pitting edema, abd soft and tender, pt urinating without difficulty, telemetry reveals sinus tach with rate 120-135, pt is alert and oriented x4, no other issues or concerns noted at this time.
[2022-05-18 06:16] LABS: Basophils # 0.2 K/mm3 (0-0.2); Basophils % 0.5 % (0.1-2.0); Eosinophils # 0.1 K/mm3 (0.0-0.4); Eosinophils % 0.3 % (0.1-12.0); Hematocrit 31.6 % (37.0-47.0); Lymphocytes # 1.1 K/mm3 (0.7-4.5); Lymphocytes % 2.7 % (10-50); Mean Corpuscular HGB Conc 31.7 g/dL (31.8-35.4); Mean Corpuscular Hemoglobin 30.3 pg (27.0-31.2); Mean Corpuscular Volume 95.6 fl (81-99); Mean Platelet Volume 8.1 fl (7.4-10.4); Monocytes # 1.1 K/mm3 (0.1-1.0); Monocytes % 2.9 % (1.7-9.3); Neutrophils # 36.3 K/mm3 (1.8-7.8); Neutrophils % 93.7 % (37.0-80.0); Platelet Count 345 K/mm3 (142-424); Red Cell Distribution Width 14.1 % (11.5-17.5); White Blood Count 38.7 K/mm3 (4.8-10.8)
[2022-05-18 06:17] LABS: MANUAL DIFFERENTIAL MANUAL DIFFERENTIAL (MANUAL DIFF)
[2022-05-18 06:18] LABS: Alanine Aminotransferase 17 U/L (12-78); Albumin Level 2.4 g/dl (3.5-5.0); Albumin/Globulin Ratio 0.8 (1.1-1.8); Alkaline Phosphatase 95 U/L (38-126); Amylase 75 U/L (30-110); Anion Gap 20.9 mEq/L (5-15); Aspartate Amino Transferase 24 U/L (14-36); Bilirubin,Total 0.6 mg/dl (0.2-1.3); Blood Urea Nitrogen 14 mg/dl (7-17); Calcium 7.7 mg/dl (8.4-10.2); Carbon Dioxide 12 mmol/L (22.0-30.0); Chloride 100 mmol/L (98-107); Creatinine Clearance Estimated 127 mL/min (50-200); Estimated Glomerular Filt Rate 63 ml/min (>60); GFR (African American) 76 ML/MIN (>60); Globulin 2.9 g/dL (1.3-3.2); Glucose 335 mg/dl (74-100); Lipase 175 U/L (23-300); Sodium 130 mmol/L (136-145); Total Protein,Serum 5.3 g/dl (6.3-8.2)
[2022-05-18 06:28] LABS: Potassium 2.9 mmoL/L (3.5-5.1)
[2022-05-18 07:33] LABS: Eosinophils % 2 % (0-3); Lymphocytes % 3 % (10-50); Monocytes % 6 % (2-9); Neutrophils % 89 % (42-76); Total Cells Counted 100
[2022-05-18 07:34] LABS: Platelet Estimate Normal; RBC Morphology Normal
--- NOTE | 2022-05-18 08:39 | EXP.ACUTE.PN ---
Subjective *Date: 05/18/22 *Time: 08:48 Interval history: Patient states she feels terrible this morning. Her friend states she does seem to be a little bit better as she has been able to get up and walk to the bathroom with minimal assistance. She states that her back is hurting and it's difficult for her to sleep. Her abdominal pain has improved. She was able to tolerate an advanced diet yesterday. She still has swelling in her abdomen and her legs. Medical Exam Vital signs and Labs for Last 24 Hours: Temp Pulse Resp BP Pulse Ox 98.6 F 112 H 24 133/75 98 05/18/22 04:00 05/18/22 04:00 05/18/22 04:00 05/18/22 04:00 05/18/22 04:00 Laboratory Results - last 24 hr 05/18/22 05:56: Hemoglobin A1c 6.0 05/18/22 05:56: WBC 38.7 H* D, RBC 3.30 L, Hgb 10.0 L, Hct 31.6 L, MCV 95.6, MCH 30.3, MCHC 31.7 L, RDW 14.1, Plt Count 345, MPV 8.1, Neut % (Auto) 93.7 H, Lymph % (Auto) 2.7 L, [place] % (Auto) 2.9, Eos % (Auto) 0.3, Baso % (Auto) 0.5, Neut # (Auto) 36.3 H, Lymph # (Auto) 1.1, [place] # (Auto) 1.1 H, Eos # (Auto) 0.1, Baso # (Auto) 0.2, Total Counted 100, Neutrophils % (Manual) 89 H, Lymphocytes % (Manual) 3 L, Monocytes % (Manual) 6, Eosinophils % (Manual) 2, Platelet Estimate Normal, RBC Morphology Normal 05/18/22 05:56: Sodium 130 L, Potassium 2.9 L* D, Chloride 100, Carbon Dioxide 12 L, Anion Gap 20.9 H, BUN 14 D, Creatinine 1.00, Estimated Creat Clear 127, Estimated GFR 63, Est GFR ( Amer) 76 D, Glucose 335 H, Calcium 7.7 L, Total Bilirubin 0.6, AST 24 D, ALT 17, Alkaline Phosphatase 95, Total Protein 5.3 L, Albumin 2.4 L, Globulin 2.9, Albumin/Globulin Ratio 0.8 L, Amylase 75, Lipase 175 I & O for Labs for Last 24 Hours: Intake & Output 05/15/22 05/16/22 05/17/22 05/18/22 11:59 11:59 11:59 11:59 Intake Total 1805 / 1805 600 / 675 915 / 915 360 / 360 Output Total 2100 / 2100 1600 / 1600 300 / 300 Balance -295 / -295 -1000 / -925 615 / 615 359 / 359 Weight 226 lb 13.69 oz 226 lb 13.69 oz 226 lb 13.69 oz 227 lb 10.072 oz Comment:: Does not appear to feel well Respiratory: Present decreased breath sounds Cardiac: Present Regular Rhythm and Tachycardia GI: Present soft, distention and tenderness (lower abdomen); Absent guarding or rebound Extremities: Present edema (bilateral lower extremities) Skin: Present pallor Neuro: Present alert and awake Assessment and Plan *Assessment and plan (1) Acute pancreatitis: Status: Acute Category: Medical Code(s): K85.90 - Acute pancreatitis without necrosis or infection, unspecified (2) SVT (supraventricular tachycardia): Status: Acute Category: Medical Code(s): I47.1 - Supraventricular tachycardia (3) Cholelithiasis: Status: Acute Category: Medical Code(s): K80.20 - Calculus of gallbladder without cholecystitis without obstruction (4) Ascites: Status: Acute Category: Medical Code(s): R18.8 - Other ascites (5) Elevated LFTs: Status: Acute Category: Medical Code(s): R79.89 - Other specified abnormal findings of blood chemistry (6) History of IBS: Status: Chronic Category: Medical Code(s): Z87.19 - Personal history of other diseases of the digestive system (7) GERD (gastroesophageal reflux disease): Status: Chronic Category: Medical Code(s): K21.9 - Gastro-esophageal reflux disease without esophagitis (8) Leukocytosis: Status: Acute Category: Medical Code(s): D72.829 - Elevated white blood cell count, unspecified (9) Hypotension: Status: Acute Category: Medical Code(s): I95.9 - Hypotension, unspecified (10) Fever: Status: Acute Category: Medical Code(s): R50.9 - Fever, unspecified (11) Pleural effusion: Status: Acute Category: Medical Code(s): J90 - Pleural effusion, not elsewhere classified (12) Compression atelectasis: Status: Acute
--- NOTE | 2022-05-18 09:42 | DIET.NUTRFU ---
This RD checked on patient this morning after breakfast, she was able to eat some of the baked potato and banana last night and then about 10 bites of oatmeal this morning. She feels slightly better today up in chair. She has some baseline nausea at home [employer] possibly due to gallbladder. She has a previous consult with a surgeon who decided not to remove gallbladder, she has been practicing a low fat diet since. Plans to revisit gallbladder sx again as outpatient. Reviewed lunch and dinner selection- plain mashed potatoes with plain grilled chicken and chicken broth with crackers. Will continue to monitor meal tolerance. labs reviewed: Na 133L, K 2.9L, lipase 175WNL, Amylase 75WNL, WBC increased at 38.7- still fighting infection ABT tx in place. MVI started and potassium replacement ordered. IVF continues to help with hydration until oral intake can meet her needs. She was noted to have 1-2 pitting edema.
--- NOTE | 2022-05-18 09:44 | CT_ITS ---
FINAL REPORT CLINICAL HISTORY: Pancreatitis with increasing WBC COMPARISON: May 10, 2022 FINDINGS: CT ABDOMEN with and without: PROCEDURE: Axial images were obtained from the lung base to the iliac crest by computed tomography before and after the administration of contrast. This study was performed with techniques to keep radiation doses as low as reasonably achievable (ALARA). Individualized dose reduction techniques using automated exposure control or adjustment of mA and/or kV according to the patient's size were employed. ABDOMEN: The lung bases are clear. 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 Portions of the head and minimal portions of the tail remained vascularized. Developing large pseudocyst in the pancreatic bed measures 13.7 x 7.2 cm. Partial thrombosis of the splenic vein, new from prior. Cholelithiasis without biliary obstruction. Increased ascites. Remaining solid abdominal organs unremarkable. Nonspecific mild diffuse bowel wall thickening involving large and small bowel. IMPRESSION: Significant interval progression of pancreatic necrosis. Large developing pseudocyst in the pancreatic bed. Increasing ascites. 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 Cholelithiasis without biliary obstruction. Reviewed, Interpreted and Dictated by Maria Eugenia Wheeler MD Transcribed by Rey Bhat Authenticated and [facility]
--- NOTE | 2022-05-18 11:28 | EXP.SURG.CON ---
History of Present Illness *Admission Date: 05/10/22 *Reason for visit:: Reason for consult: Possible gallstone pancreatitis *History of present illness: This is a 37-year-old female seen in consultation Dr. Lee for evaluation regarding possible biliary pathology for recent acute pancreatitis. Her most recent laboratory evaluation reveals resolution of her amylase/lipase; however, she continues to have fairly persistent upper abdominal/right upper abdominal pain and worsening leukocytosis. Please see HPI forwarded below from admission H&P. Below is forwarded from admission H&P: Ms. Griffiths is a 37-year-old female with a history of GERD and IBS who began vomiting this past Sunday. She states she vomited every day and her reflux seems to be worse. Yesterday around 3 PM she began having horrific mid abdominal pain. Her family states she vomited so profusely between 3 and 5:00 yesterday that she could hardly breathe. She was brought to the emergency room for evaluation. She was given morphine, Reglan, and famotidine in the ER and a CT of the abdomen and pelvis was performed. It showed acute pancreatitis as well as gallstones. Her white blood cell count was elevated at 34.5 and her amylase was 5950 and lipase was 55,000. Her bilirubin was elevated at 1.9 and her AST was elevated at 128. She was admitted for further evaluation and treatment. [facility] Medical History (Updated 05/18/22 @ 08:41 by ABIGAIL Gramajo) GERD (gastroesophageal reflux disease) History of IBS Surgical History (Updated 05/11/22 @ 09:56 by ABIGAIL Gramjao) History of loop electrical excision procedure (LEEP) History of tonsillectomy Family History (Updated 05/11/22 @ 09:56 by ABIGAIL Gramajo) Cirrhosis of liver Hypertension Social History (Updated 05/10/22 @ 23:20 by Maria R Barry RN) Smoking Status: Former smoker alcohol intake: current substance use type: former substance user and marijuana current occupational status: employed and other Travel in the last 8 weeks: None Review of Systems Constitutional Constitutional: Denies headache(s) and Reports weakness ENT Ears, Nose, Mouth, and Throat: Denies headache(s) and Denies vertigo *Neurologic Neurologic: Denies headache(s), Denies vertigo and Reports weakness Meds Home Medications and Allergies Home Medications Medication Instructions Recorded Confirmed Type norgestimate 0.25 mg-ethinyl 1 tab PO DAILY control 05/10/22 05/10/22 History estradiol 35 mcg tablet (Sprintec (28)) polyethylene glycol 3350 17 gram 4 g PO DAILY Indigestion 05/11/22 05/11/22 History oral powder packet (Miralax) psyllium husk 3.4 gram/5.4 gram 1 tbsp PO DAILY Indigestion 05/11/22 05/11/22 History oral powder (Metamucil) New Prescriptions to Start Prescriptions: Allergies Allergy/AdvReac Type Severity Reaction Status Date / Time No Known Allergies Allergy Verified 05/10/22 23:11 Exam (Inpt) Vital signs and Labs for Last 24 Hours: Temp Pulse Resp BP Pulse Ox 97.7 F 115 H 20 142/70 H 95 05/18/22 08:00 05/18/22 08:00 05/18/22 08:00 05/18/22 08:00 05/18/22 08:00 Laboratory Results - last 24 hr 05/18/22 05:56: Hemoglobin A1c 6.0 05/18/22 05:56: WBC 38.7 H* D, RBC 3.30 L, Hgb 10.0 L, Hct 31.6 L, MCV 95.6, MCH 30.3, MCHC 31.7 L, RDW 14.1, Plt Count 345, MPV 8.1, Neut % (Auto) 93.7 H, Lymph % (Auto) 2.7 L, [place] % (Auto) 2.9, Eos % (Auto) 0.3, Baso % (Auto) 0.5, Neut # (Auto) 36.3 H, Lymph # (Auto) 1.1, [place] # (Auto) 1.1 H, Eos # (Auto) 0.1, Baso # (Auto) 0.2, Total Counted 100, Neutrophils % (Manual) 89 H, Lymphocytes % (Manual) 3 L, Monocytes % (Manual) 6, Eosinophils % (Manual) 2, Platelet Estimate Normal, RBC Morphology Normal 05/18/22 05:56: Sodium 130 L, Potassium 2.9 L* D, Chloride 100, Carbon Dioxide 12 L, Anion Gap 20.9 H, BUN 14 D, Creatinine 1.00, Estimated Creat Clear 127, Estimated GFR 63, Est GFR ( Amer) 76 D, Glucos
--- NOTE | 2022-05-18 14:00 | XR_ITS ---
FINAL REPORT CLINICAL HISTORY: Confirm PICC line placement COMPARISON: May 15, 2022 FINDINGS: The heart size is normal. The mediastinum is within normal limits. Hypoinflation with atelectasis and pulmonary vascular congestion. Small pleural effusions, improved. Left upper extremity PICC line extends into the left jugular vein. IMPRESSION: Mild position the left PICC line. Atelectasis and small pleural effusions. Reviewed, Interpreted and Dictated by Maria Eugenia Wheeler MD Transcribed by Rey Bhat Authenticated and . [facility]
--- NOTE | 2022-05-18 14:56 | XR_ITS ---
FINAL REPORT CLINICAL HISTORY: PICC line placement, repositioned COMPARISON: 10 minutes prior FINDINGS: Interval repositioning of left PICC line now terminating at the SVC atrial junction. Stable atelectasis and small pleural effusions. IMPRESSION: Left PICC line terminating at the SVC atrial junction. Reviewed, Interpreted and Dictated by Maria Eugenia Wheeler MD Transcribed by Rey Bhat Authenticated and [facility]
--- NOTE | 2022-05-18 15:42 | PC.NURSE ---
PICC nurse called and reports picc line is in good position and okay to use.
--- NOTE | 2022-05-18 16:20 | PC.NURSE ---
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
[2022-05-19] VITALS: PULSE 125
[2022-05-19 04:00] VITALS: BP 123/71; PULSE 118; PULSE 120; RESP 20; TEMP 37.2; O2SAT 97
[2022-05-19 04:19] VITALS: BMI 34.5
[2022-05-19 06:36] LABS: Basophils # 0.2 K/mm3 (0-0.2); Basophils % 0.4 % (0.1-2.0); Eosinophils # 0.1 K/mm3 (0.0-0.4); Eosinophils % 0.2 % (0.1-12.0); Hematocrit 28.5 % (37.0-47.0); Hemoglobin 9.5 g/dL (12.2-16.2); Lymphocytes % 2.3 % (10-50); Mean Corpuscular HGB Conc 33.4 g/dL (31.8-35.4); Mean Corpuscular Hemoglobin 31.7 pg (27.0-31.2); Mean Corpuscular Volume 94.8 fl (81-99); Mean Platelet Volume 8.4 fl (7.4-10.4); Monocytes # 1.1 K/mm3 (0.1-1.0); Monocytes % 2.7 % (1.7-9.3); Neutrophils % 94.4 % (37.0-80.0); Platelet Count 325 K/mm3 (142-424); Red Blood Count 3.01 M/mm3 (4.20-5.40); Red Cell Distribution Width 14.1 % (11.5-17.5)
[2022-05-19 06:51] LABS: Alanine Aminotransferase 13 U/L (12-78); Albumin Level 2.1 g/dl (3.5-5.0); Albumin/Globulin Ratio 0.8 (1.1-1.8); Alkaline Phosphatase 106 U/L (38-126); Anion Gap 18.2 mEq/L (5-15); Aspartate Amino Transferase 22 U/L (14-36); Bilirubin,Total 0.4 mg/dl (0.2-1.3); Blood Urea Nitrogen 11 mg/dl (7-17); Calcium 7.5 mg/dl (8.4-10.2); Carbon Dioxide 14 mmol/L (22.0-30.0); Chloride 98 mmol/L (98-107); Creatinine Clearance Estimated 141 mL/min (50-200); Estimated Glomerular Filt Rate 71 ml/min (>60); GFR (African American) 86 ML/MIN (>60); Globulin 2.6 g/dL (1.3-3.2); Glucose 304 mg/dl (74-100); Potassium 3.2 mmoL/L (3.5-5.1); Sodium 127 mmol/L (136-145); Total Protein,Serum 4.7 g/dl (6.3-8.2); White Blood Count 41.3 K/mm3 (4.8-10.8)
[2022-05-19 06:52] LABS: MANUAL DIFFERENTIAL MANUAL DIFFERENTIAL (MANUAL DIFF)
--- NOTE | 2022-05-19 07:18 | P.PN_ITS ---
Subjective Patient reports: other Narrative: She states that she feels just a little bit better today. Exam Data for Last 24 hours Vital signs and Labs for Last 24 Hours: Temp Pulse Resp BP Pulse Ox 98.9 F 118 H 20 123/71 97 05/19/22 04:00 05/19/22 04:00 05/19/22 04:00 05/19/22 04:00 05/19/22 04:00 Laboratory Results - last 24 hr 05/18/22 05:56: Hemoglobin A1c 6.0 05/18/22 05:56: Total Counted 100, Neutrophils % (Manual) 89 H, Lymphocytes % (Manual) 3 L, Monocytes % (Manual) 6, Eosinophils % (Manual) 2, Platelet Estimate Normal, RBC Morphology Normal 05/19/22 05:42: WBC 41.3 H*, RBC 3.01 L, Hgb 9.5 L, Hct 28.5 L, MCV 94.8, MCH 31.7 H, MCHC 33.4, RDW 14.1, Plt Count 325, MPV 8.4, Neut % (Auto) 94.4 H, Lymph % (Auto) 2.3 L, [place] % (Auto) 2.7, Eos % (Auto) 0.2, Baso % (Auto) 0.4, Neut # (Auto) 39.0 H, Lymph # (Auto) 1.0, [place] # (Auto) 1.1 H, Eos # (Auto) 0.1, Baso # (Auto) 0.2 05/19/22 05:42: Sodium 127 L, Potassium 3.2 L, Chloride 98, Carbon Dioxide 14 L, Anion Gap 18.2 H, BUN 11, Creatinine 0.90, Estimated Creat Clear 141, Estimated GFR 71, Est GFR ( Amer) 86, Glucose 304 H, Calcium 7.5 L, Total Bilirubin 0.4, AST 22, ALT 13, Alkaline Phosphatase 106, Total Protein 4.7 L, Albumin 2.1 L D, Globulin 2.6, Albumin/Globulin Ratio 0.8 L I & O for Last 24 hours: Intake & Output 05/16/22 05/17/22 05/18/22 05/19/22 11:59 11:59 11:59 11:59 Intake Total 600 / 675 915 / 915 480 / 480 690 / 690 Output Total 1600 / 1600 300 / 300 1 / 400 / 400 Balance -1000 / -925 615 / 615 479 / 479 290 / 290 Weight 226 lb 13.69 oz 226 lb 13.69 oz 227 lb 10.072 oz 227 lb 15.327 oz Radiology Reports for the Last 24 Hours: CT scan of abdomen pelvis (pancreatic protocol) obtained yesterday reveals the following: Significant interval progression of pancreatic necrosis. Large developing pseudocyst in the pancreatic bed.? ? Increasing ascites.? ? 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 Cholelithiasis without biliary obstruction. Constitutional Constitutional: no acute distress *Routine Respiratory Exam Respiratory: Absent respiratory distress *Routine Cardiovascular Exam Cardiovascular: Present tachycardia Progress Note: A&P Assessment and plan (1) Pancreatic necrosis: Status: Acute Assessment and plan: Transfer to tertiary center pending Continue management as per primary service (2) Pancreatic pseudocyst: Status: Acute (3) Acute pancreatitis: Status: Acute (4) Cholelithiasis: Status: Acute (5) Leukocytosis: Status: Acute
[2022-05-19 07:30] LABS: Lymphocytes % 4 % (10-50); Monocytes % 5 % (2-9); Neutrophils % 91 % (42-76); Platelet Estimate Normal; RBC Morphology Normal; Total Cells Counted 100
[2022-05-19 08:00] VITALS: PULSE 128
[2022-05-19 08:25] VITALS: BP 122/71; PULSE 128; RESP 23; TEMP 36.9; O2SAT 94
--- NOTE | 2022-05-19 08:40 | EXP.ACUTE.PN ---
Subjective *Date: 05/21/22 *Time: 16:05 Interval history: Patient states she is feeling a little bit better this morning. She has been tolerating a diet and has been up moving around the room without assistance. She states she actually slept with the Dilaudid last night. Medical Exam Vital signs and Labs for Last 24 Hours: Temp Pulse Resp BP Pulse Ox 98.9 F 118 H 20 123/71 97 05/19/22 04:00 05/19/22 04:00 05/19/22 04:00 05/19/22 04:00 05/19/22 04:00 Laboratory Results - last 24 hr 05/19/22 05:42: WBC 41.3 H*, RBC 3.01 L, Hgb 9.5 L, Hct 28.5 L, MCV 94.8, MCH 31.7 H, MCHC 33.4, RDW 14.1, Plt Count 325, MPV 8.4, Neut % (Auto) 94.4 H, Lymph % (Auto) 2.3 L, [place] % (Auto) 2.7, Eos % (Auto) 0.2, Baso % (Auto) 0.4, Neut # (Auto) 39.0 H, Lymph # (Auto) 1.0, [place] # (Auto) 1.1 H, Eos # (Auto) 0.1, Baso # (Auto) 0.2, Total Counted 100, Neutrophils % (Manual) 91 H, Lymphocytes % (Manual) 4 L, Monocytes % (Manual) 5, Platelet Estimate Normal, RBC Morphology Normal 05/19/22 05:42: Sodium 127 L, Potassium 3.2 L, Chloride 98, Carbon Dioxide 14 L, Anion Gap 18.2 H, BUN 11, Creatinine 0.90, Estimated Creat Clear 141, Estimated GFR 71, Est GFR ( Amer) 86, Glucose 304 H, Calcium 7.5 L, Total Bilirubin 0.4, AST 22, ALT 13, Alkaline Phosphatase 106, Total Protein 4.7 L, Albumin 2.1 L D, Globulin 2.6, Albumin/Globulin Ratio 0.8 L I & O for Labs for Last 24 Hours: Intake & Output 05/16/22 05/17/22 05/18/22 05/19/22 11:59 11:59 11:59 11:59 Intake Total 600 / 675 915 / 915 480 / 480 690 / 690 Output Total 1600 / 1600 300 / 300 1 / 1 400 / 400 Balance -1000 / -925 615 / 615 479 / 479 290 / 290 Weight 226 lb 13.69 oz 226 lb 13.69 oz 227 lb 10.072 oz 227 lb 15.327 oz Constitutional: Present no acute distress (looks better this am, sitting up in a chair) Respiratory: Present decreased breath sounds Cardiac: Present Regular Rhythm and Tachycardia (120's) GI: Present soft; Absent tenderness (lower abdomen), guarding or rebound Extremities: Present edema (bilateral lower extremities) Skin: Present warm Neuro: Present alert, awake and oriented x 3 Assessment and Plan *Assessment and plan (1) Acute pancreatitis: Status: Acute Category: Medical Code(s): K85.90 - Acute pancreatitis without necrosis or infection, unspecified (2) SVT (supraventricular tachycardia): Status: Acute Category: Medical Code(s): I47.1 - Supraventricular tachycardia (3) Cholelithiasis: Status: Acute Category: Medical Code(s): K80.20 - Calculus of gallbladder without cholecystitis without obstruction (4) Ascites: Status: Acute Category: Medical Code(s): R18.8 - Other ascites (5) Elevated LFTs: Status: Acute Category: Medical Code(s): R79.89 - Other specified abnormal findings of blood chemistry (6) History of IBS: Status: Chronic Category: Medical Code(s): Z87.19 - Personal history of other diseases of the digestive system (7) GERD (gastroesophageal reflux disease): Status: Chronic Category: Medical Code(s): K21.9 - Gastro-esophageal reflux disease without esophagitis (8) Leukocytosis: Status: Acute Category: Medical Code(s): D72.829 - Elevated white blood cell count, unspecified (9) Hypotension: Status: Acute Category: Medical Code(s): I95.9 - Hypotension, unspecified (10) Fever: Status: Acute Category: Medical Code(s): R50.9 - Fever, unspecified (11) Pleural effusion: Status: Acute Category: Medical Code(s): J90 - Pleural effusion, not elsewhere classified (12) Compression atelectasis: Status: Acute Category: Medical Code(s): J98.11 - Atelectasis (13) Acute pancreatic necrosis: Status: Acute Category: Medical Code(s): K85.91 - Acute pancreatitis with uninfected necrosis, unspecified (14) Pancreatic p
--- NOTE | 2022-05-19 09:21 | PC.NURSE ---
[facility] called for update on patient. update given, labs and vitals. no beds at this time
--- NOTE | 2022-05-19 09:34 | PC.NURSE ---
one unmeasured void
--- NOTE | 2022-05-19 10:10 | DIET.NUTRFU ---
Spoke to patient with family present this AM about menu selection and diet. Will change diet from bland to low fat but patient needs to select menu based on phase 1 and phase 2 pancreatic handouts. Will post handout in room, with nursing and with dietary so if a menu does get turned in staff will know what to provide. Patient still has minimal nausea, able to tolerate oatmeal/grilled chicken, did not like the mashed potatoes. Plans to try boiled potatoes/rice and more fruit today. Family plans to bring in some of patient favorite beverages. Discouraged against lots of sugars drinks and carbonated but allowed her to decide based on how she is feeling. Since she is tolerating phase 1 diet, allowing her move on to phase 2 which adds in diary, she wanted to try yogurt and cottage cheese. LBM note 05/18. No IVF running, patient appears well hydrated with some edema to BLE. Oral hydrated is meeting needs. Plan is to transfer to another hospital d/t pancreatic necrosis, a large developing pseudocyst in the pancreatic head, increasing ascites, and interval partial thrombosis of the splenic vein. Also unable to provide nutrition via J-tube to skip over stomach/pancreatis procedure unavailable. Will continue to monitor diet tolerance.
[2022-05-19 12:00] VITALS: BP 111/61; PULSE 120; PULSE 126; RESP 16; TEMP 37.3; O2SAT 96
--- NOTE | 2022-05-19 12:57 | PC.NURSE ---
one unmeasured void
--- NOTE | 2022-05-19 13:39 | PC.NURSE ---
ROUNDED ON PATIENT AT 1200. PATIENT RESTING IN CHAIR SITTING UP. LUNCH TRAY BROUGHT IN ROOM. WAS DRIFTING IN AND OUT OF SLEEP. FRIEND AT BEDSIDE, STATING SHE WAS TIRED TODAY, BUT FELT SHE RESTED BETTER LAST NIGHT THAN USUAL. THEY FEEL SHE HAS MORE STRENGTH AND HAS BEEN AMBULATING TO BATHROOM. NO COMPLAINTS OR CONCERNS AT THIS TIME. ENCOURAGED THEM TO RING OUT WITH ANY NEEDS OR CONCERNS.
--- NOTE | 2022-05-19 13:45 | PC.NURSE ---
Spoke with shannan from [facility] pt has a bed @ [address]
--- NOTE | 2022-05-19 13:50 | PC.NURSE ---
Spoke with Dr. Peterson to do D/C order for the patient.
--- NOTE | 2022-05-19 14:24 | PC.NURSE ---
Spoke with Eulalio CERON from gave Report
--- NOTE | 2022-05-19 14:26 | PC.NURSE ---
Called [facility] to attempt report. Nurse was off floor and would call me back.
[2022-05-19 16:00] VITALS: BP 142/72; PULSE 119; PULSE 130; RESP 20; TEMP 36.9; O2SAT 99
--- NOTE | 2022-05-22 21:40 | EXP.DC.SUM ---
General Admission date:: 05/10/22 Discharge date: 05/19/22 HPI HPI HPI: Ms. Griffiths is a 37-year-old female with a history of GERD and IBS who began vomiting this past Sunday.? She states she vomited every day and her reflux seems to be worse.? Yesterday around 3 PM she began having horrific mid abdominal pain.? Her family states she vomited so profusely between 3 and 5:00 yesterday that she could hardly breathe.? She was brought to the emergency room for evaluation.? She was given morphine, Reglan, and famotidine in the ER and a CT of the abdomen and pelvis was performed.? It showed acute pancreatitis as well as gallstones.? Her white blood cell count was elevated at 34.5 and her amylase was 5950 and lipase was 55,000.? Her bilirubin was elevated at 1.9 and her AST was elevated at 128.? She was admitted for further evaluation and treatment. Hospital Course Hospital Course Hospital Course: Her lipase initially improved from 55,000-7000 and her white blood cell count was decreasing. Her bilirubin normalized and her liver function tests were improving as well. It was felt she would need an MRCP to see if she would need to be transferred for an ERCP. She had an MRCP which continue to show changes of acute pancreatitis with edema around the head of the pancreas, but no choledocholithiasis. The patient had nausea but no vomiting and wanted to try clear liquids and a popsicle. Her abdominal pain had improved slightly, but she had developed some lower abdominal pain and dysuria and thought she may have a UTI. She had also had episodes of SVT and had to be moved to stepdown and started on a Cardizem drip. Her heart rate slowed into the 130s on the Cardizem drip and cardiology was consulted. A UA was also ordered. She was seen by cardiology and her initial EKG showed an SVT rate of 164. She was given a one-time dose of metoprolol and started on a Cardizem drip. Dr. Wells felt her rhythm was more sinus tachycardia rather than SVT due to acute illness. Her CTA was negative for PE, but did show bibasilar consolidation and moderate pleural effusions along with moderate ascites in the upper abdomen and marked abnormal appearance of the pancreas. They recommended giving Bumex 1 mg IV as needed for shortness of air or lower extremity edema as her blood pressure would allow. She had an echo which showed an EF of greater than 55%. She was given a one-time dose of bisoprolol 10 mg which slowed her rate to less than 100, however the patient then started feeling nauseated again. She was started on metoprolol 5 mg IV every 6 hours as needed for rate above 110. By 05/13/2022, she had to be placed on 3 L of oxygen due to desaturations. She was able to be weaned off of the Cardizem drip and her heart rate was stable, but her blood pressure had been low. She tried to eat clear liquids and had some dry heaving. Her sodium returned low and her creatinine was elevating. Her glucose was elevating as well. Her lipase increased with the clear liquids. Her IV fluid rate was increased and she was started on Invanz. By 05/14/2022, she was not feeling well. She was anxious and did not want to be left alone. She was having pain in the lower abdomen planing of low back pain her heart rate was back up into the 120s and 130s. She was given a one-time dose of metoprolol which decreased her heart rate into the lower 100s, but it went right back up into the 120s. She had to be placed on a dopamine drip due to low blood pressure. Her white blood cell count, amylase, lipase, and renal functions had all improved. Her urine culture showed mixed organisms suggesting contamination, therefore another UA was ordered. She had had good urine output with Lasix and the plan was to wean her dopamine drip. Her oxygen saturations were better. She was started on a low-dose of lorazepam for anxiety issues. She was able to be weaned off of her dopamine drip and her blood pressures were stabl
== END 2022-05-19 17:07 | disposition short-term general hospital (02) | DRG 439 ==
LOC: ER 22:30 → 2ND 22:44
PROVIDERS: Family Medicine; Admitting Provider Family Medicine; Emergency Provider Emergency Medicine; PCP Physician Assistant; Visit Provider Family Medicine
DX: K85.91 Acute pancreatitis with uninfected necrosis, unspecified (principal); I47.1 Supraventricular tachycardia; J90 Pleural effusion, not elsewhere classified; R17 Unspecified jaundice; J98.11 Atelectasis; K86.3 Pseudocyst of pancreas; R18.8 Other ascites; K21.9 Gastro-esophageal reflux disease without esophagitis; Z87.891 Personal history of nicotine dependence; K80.20 Calculus of gallbladder without cholecystitis without obstruction
CPT/HCPCS: 36569; 36410; 36415; 71045; 71275; 74170; 74177; 74181; 76376; 80053; 80061; 80305; 81001; 81025; 82150; 83036; 83690; 84145; 85007; 85025; 85651; 86140; 87040; 87086; 93005; 93306; 97163; 97166; 99285; C1751; C9803; J1335; J2185; J2405; Q9967; U0003; U0005

== ENCOUNTER 2022-06-04 11:40 | Emergency (ER) | payer OTHER, SELFPAY ==
[2022-06-04] VITALS (13 sets, daily range): BP systolic 121–140; BP diastolic 75–86; PULSE 74–96; RESP 15–18; TEMP 36.9; O2SAT 92–99; BMI 28.2
--- NOTE | 2022-06-04 12:06 | CT_ITS ---
PROCEDURE INFORMATION: Exam: CT Abdomen And Pelvis With Contrast Exam date and time: 06/04/2022 1:29 PM Age: 37 years old Clinical indication: Abdominal pain; Acute; Patient HX: Abd pain- diffuse had pancreatic necrosis on 05/18/22 and was in the hospital for 15 days now has lower abd pain; Additional info: Abdominal pain, diffuse TECHNIQUE: Imaging protocol: Computed tomography of the abdomen and pelvis with contrast. Radiation optimization: All CT scans at this facility use at least one of these dose optimization techniques: automated exposure control; mA and/or kV adjustment per patient size (includes targeted exams where dose is matched to clinical indication); or iterative reconstruction. Contrast material: ISOVUE; Contrast volume: 75 ml; Contrast route: IV; COMPARISON: CT ABDOMEN WO/W CON 05/18/2022 10:35 AM FINDINGS: Pleural spaces: Moderate pleural effusions bilaterally. Liver: Normal. No mass. Gallbladder and bile ducts: Cholelithiasis. Pancreas: Since previous examination, there has been further development of large, multiloculated thin-walled cyst in the region of the pancreas, compatible with pseudocyst. This measures 8 x 15 cm (AP/TV). Spleen: Normal. No splenomegaly. Adrenal glands: Normal. No mass. Kidneys and ureters: Normal. No hydronephrosis. Stomach and bowel: Significant mass effect upon the gastric body. Appendix: No evidence of appendicitis. Intraperitoneal space: Moderate abdominal and pelvic ascites. Stable diffuse mesenteric nodularity. Vasculature: Unremarkable. No abdominal aortic aneurysm. Lymph nodes: Unremarkable. No enlarged lymph nodes. Urinary bladder: Unremarkable as visualized. Reproductive: Unremarkable as visualized. Bones/joints: Unremarkable. No acute fracture. Soft tissues: Unremarkable. IMPRESSION: 1. Since previous examination, there has been further development of large, multiloculated thin-walled cyst in the region of the pancreas, compatible with pseudocyst. This measures 8 x 15 cm (AP/TV). 2. Significant mass effect upon the gastric body. 3. Moderate abdominal and pelvic ascites. 4. Stable diffuse mesenteric nodularity.
--- NOTE | 2022-06-04 12:07 | HMH.EDGENADL ---
Discharge Plan Disposition Patient Disposition: Xfer Short-Term Hosp Condition: Good Referrals Follow up/Referrals: Flor Garcia PA [Primary Care Provider] - See instructions Clinical Impressions Clinical Impression: Pancreatic pseudocyst, Ascites, Pancreatic necrosis, Abdominal pain Instructions Patient Instructions: DI for Acute Abdominal Pain Discharge ED Provider: Suzi Solorzano General Adult HPI General Chief complaint: Abdominal Pain Stated complaint: Severe stomach pain radiating up Time Seen by Provider: 06/04/22 11:55 History of Present Illness HPI narrative: This patient is a 37-year-old female with history of recent pancreatic pseudocyst with necrosis secondary to choledocholithiasis presenting to the emergency department for evaluation of diffuse abdominal pain. She states that she was admitted here for several days and then transferred to [facility] for medical management of pancreatitis, and she was ultimately discharged a few weeks ago. She states that she had been doing well since going home with no symptoms at all, however yesterday she developed a nonspecific abdominal pain that acutely worsened overnight. She states that she tried taking her oxycodone as well as Tylenol at night with no improvement in her symptoms. She is also had nausea, but no vomiting. No changes in bowel movements, no abnormal vaginal discharge, no dysuria, no concerns for STI, and no concern for . The pain starts in her lower abdomen and radiates up both sides. She describes it as severe and sharp. No fevers, chills, chest pain, shortness of breath, or other concerns at this time. She denies any heavy alcohol use, and she denies any prior abdominal surgeries. Related Data Allergies Allergy/AdvReac Type Severity Reaction Status Date / Time No Known Allergies Allergy Verified 05/10/22 23:11 [facility] Medical History (Updated 06/04/22 @ 15:49 by Suzi Solorzano DO) Calcaneal spur Diabetes Fluid overload Fracture dislocation of joint Fracture of proximal phalanx of lesser toe of right foot GERD (gastroesophageal reflux disease) History of IBS History of ovarian cyst Hypertension Pancreatic necrosis Pancreatic pseudocyst Vitamin deficiency Surgical History History of loop electrical excision procedure (LEEP) History of tonsillectomy Family History Other Cirrhosis of liver Hypertension Social History Smoking Status: Never smoker alcohol intake: current substance use type: former substance user and marijuana current occupational status: employed and other Travel in the last 8 weeks: None ROS Obtained: Yes All systems reviewed & no additional complaints except as documented 14 point review of systems obtained and negative except otherwise mentioned in HPI. Physical Exam General General appearance: alert and in no apparent distress Head Head exam: atraumatic and normocephalic Eye Eye exam: Present normal appearance ENT ENT exam: Present normal exam and normal oropharynx Neck Neck exam: Present normal inspection and full ROM Chest Chest inspection: Present normal inspection and symmetric chest wall rise Respiratory Respiratory exam: Present normal lung sounds bilaterally; Absent respiratory distress or wheezes Cardiovascular Cardiovascular exam: Present normal rhythm and tachycardia Abdominal Exam Abdominal exam: Present soft, tenderness (Diffuse) and guarding (Voluntary); Absent distention or rebound Extremities Exam Extremities exam: Present normal inspection and full ROM; Absent tenderness Back Exam Back exam: Present normal inspection Neurological Exam Neurological exam: Present alert Psychiatric Psychiatric exam: Present normal affect Skin Skin exam: Present warm, dry and normal color Lymphatic Lymphati
[2022-06-04 12:11] LABS: Appearance,Urine CLEAR (Clear); Bilirubin,Urine Negative (Negative); Blood, Urine TRACE-L (Negative); Color,Urine YELLOW (Yellow); Glucose,Urine (UA) Negative (Negative); Ketones,Urine Negative (Negative); Leukocyte Esterase,Urine Negative (Negative); Microscopic, Urine URINE MICROSCOPIC (MICROSCOPIC); Nitrate,Urine Negative (Negative); Protein,Urine Negative (Negative); Urobilinogen,Urine 0.2 EU/dl (0.2)
[2022-06-04 12:20] LABS: Chloride 99 mmol/L (98-107); Potassium 4.1 mmoL/L (3.5-5.1); Sodium 136 mmol/L (136-145)
[2022-06-04 12:21] LABS: Basophils # 0.1 K/mm3 (0-0.2); Basophils % 1.1 % (0.1-2.0); Eosinophils # 0.4 K/mm3 (0.0-0.4); Hematocrit 33.8 % (37.0-47.0); Hemoglobin 10.6 g/dL (12.2-16.2); Lymphocytes # 2.1 K/mm3 (0.7-4.5); Lymphocytes % 16.1 % (10-50); Mean Corpuscular HGB Conc 31.3 g/dL (31.8-35.4); Mean Corpuscular Hemoglobin 29.2 pg (27.0-31.2); Mean Corpuscular Volume 93.4 fl (81-99); Mean Platelet Volume 7.7 fl (7.4-10.4); Monocytes # 0.6 K/mm3 (0.1-1.0); Monocytes % 4.7 % (1.7-9.3); Neutrophils # 9.8 K/mm3 (1.8-7.8); Neutrophils % 75.1 % (37.0-80.0); Platelet Count 788 K/mm3 (142-424); Red Blood Count 3.62 M/mm3 (4.20-5.40); Red Cell Distribution Width 14.5 % (11.5-17.5)
[2022-06-04 12:22] LABS: Blood Urea Nitrogen 8 mg/dl (7-17)
[2022-06-04 12:23] LABS: Alanine Aminotransferase 17 U/L (12-78); Albumin Level 3.3 g/dl (3.5-5.0); Albumin/Globulin Ratio 0.8 (1.1-1.8); Alkaline Phosphatase 93 U/L (38-126); Anion Gap 12.1 mEq/L (5-15); Aspartate Amino Transferase 30 U/L (14-36); Bilirubin,Total 0.3 mg/dl (0.2-1.3); Calcium 8.9 mg/dl (8.4-10.2); Carbon Dioxide 29 mmol/L (22.0-30.0); Creatinine Clearance Estimated 152 mL/min (50-200); Estimated Glomerular Filt Rate 95 ml/min (>60); GFR (African American) 115 ML/MIN (>60); Globulin 4.1 g/dL (1.3-3.2); Glucose 129 mg/dl (74-100); Lipase 366 U/L (23-300); Total Protein,Serum 7.4 g/dl (6.3-8.2)
[2022-06-04 12:23] LABS: Bacteria,Urine Trace /lpf; Squamous Epithelial Cell,Urine Occasional #/hpf (0-5)
[2022-06-04 12:27] LABS: Lactic Acid 0.8 mmol/L (0.7-2.1)
[2022-06-04 12:37] LABS: HCG Qualitative, Serum Negative (Negative)
--- NOTE | 2022-06-04 15:25 | PC.NURSE ---
calling [facility] for transfer
--- NOTE | 2022-06-04 16:42 | PC.NURSE ---
rounded on pt at this time. updated pt that dr riley at was accepting pt we are awaiting transport for pt. no needs voiced
--- NOTE | 2022-06-04 18:16 | PC.NURSE ---
pt to the restroom at this time. updated on poc
--- NOTE | 2022-06-04 18:37 | PC.NURSE ---
calling report to er
== END 2022-06-04 21:36 | disposition short-term general hospital (02) ==
PROVIDERS: Emergency Provider Emergency Medicine; PCP Physician Assistant
DX: K86.3 Pseudocyst of pancreas (principal); K86.89 Other specified diseases of pancreas; R18.8 Other ascites; I10 Essential (primary) hypertension; E56.9 Vitamin deficiency, unspecified; R01.1 Cardiac murmur, unspecified; D72.829 Elevated white blood cell count, unspecified; K21.9 Gastro-esophageal reflux disease without esophagitis; E11.9 Type 2 diabetes mellitus without complications; Z82.49 Family history of ischemic heart disease and other diseases of the circulatory system; Z83.79 Family history of other diseases of the digestive system
CPT/HCPCS: 74177; 80053; 81001; 83605; 83690; 84703; 85025; 96361; 96374; 96375; 99285; J2405; Q9967

== ENCOUNTER → 2022-07-17 07:40 | Outpatient (CLI) | payer OTHER, SELFPAY ==
--- NOTE | 2022-07-17 09:06 | CT_ITS ---
FINAL REPORT TECHNIQUE: Axial CT images of the abdomen were obtained with IV contrast only. Coronal reformatted images were also obtained. This study was performed with techniques to keep radiation doses as low as reasonably achievable (ALARA). Individualized dose reduction techniques using automated exposure control or adjustment of mA and/or kV according to the patient''s size were employed. CLINICAL HISTORY: NECROTIZING PANCREATITIS COMPARISON: April 2022 FINDINGS: Moderate left pleural effusion has significantly increased since prior exam. Significant improvement in the previous ascites. Pancreatic atrophy with preservation of enhancing tissue within the pancreatic head. Two cyst gastrostomy drains extending into the pancreatic body. Small fluid collection within the pancreatic body measures 4.8 x 1.0 cm. Separate fluid collection in the more proximal pancreas involving the uncinate process measures 1.5 x 0.7 cm compatible with intrapancreatic pseudocyst. Enhancing soft tissue in the left perinephric space is new probably related to phlegmon although a central fluid collection measuring 2.1 x 1.1 cm may represent a pseudo cyst. Less likely abscess. Cholelithiasis. Mild mesenteric adenopathy is likely reactive. IMPRESSION: Significant improved pancreatitis. Minimal residual fluid associated with pancreatic drains. Small intrapancreatic pseudocyst involving the uncinate process. Abnormal enhancing soft tissue in the left perinephric space probably related to phlegmon more pronounced since prior with associated small fluid collection. Recommend continued CT follow-up in 4 weeks. Cholelithiasis. Reviewed, Interpreted and Dictated by Maria Eugenia Wheeler MD Transcribed by Rey Bhat Authenticated and [facility]
== END ==
PROVIDERS: PCP Physician Assistant; Visit Provider Internal Medicine Gastroenterology
DX: K85.91 Acute pancreatitis with uninfected necrosis, unspecified (principal)
CPT/HCPCS: 74160; Q9967

== ENCOUNTER → 2022-12-27 13:47 | Outpatient (CLI) | payer OTHER, SELFPAY ==
--- NOTE | 2022-12-27 13:52 | US_ITS ---
FINAL REPORT CLINICAL HISTORY: PELVIC PAIN COMPARISON: 12/31/2020 FINDINGS: The uterus is retroflexed measuring 6.5 x 3.4 x 4.5 cm. The endometrial stripe is normal measuring 8 mm. The previously noted large ovarian cyst has resolved or improved. There is a normal follicular cyst of the left ovary measuring up to 12 mm. The right ovary is enlarged due to a 32 mm simple cyst, new since prior exam. IMPRESSION: Resolved left ovarian cyst from prior exam. Development of a benign-appearing right ovarian cyst, most likely benign. Recommend 6-8 week follow-up. Reviewed, Interpreted and Dictated by Maria Eugenia Wheeler MD Transcribed by Christi Archuleta Authenticated and [facility]
== END ==
LOC: RAD 13:48
PROVIDERS: PCP Physician Assistant; Visit Provider Physician Assistant
DX: R10.2 Pelvic and perineal pain (principal)
CPT/HCPCS: 76830

== ENCOUNTER → 2023-01-29 14:18 | Outpatient (CLI) | payer OTHER, SELFPAY ==
[2023-01-31 10:46] LABS: FSH 2.6 mIU/mL (.)
[2023-02-03 19:39] LABS: Testosterone, Total, LC/MS 18 ng/dL (.)
== END ==
LOC: LAB 14:18
PROVIDERS: PCP Physician Assistant; Visit Provider Obstetrics & Gynecology
DX: N91.2 Amenorrhea, unspecified (principal)
CPT/HCPCS: 36415; 82670; 83001; 84403; 84443

== ENCOUNTER → 2023-07-09 16:42 | Outpatient (CLI) | payer OTHER, SELFPAY ==
[2023-07-09 18:50] LABS: Thyroid Stimulating Hormone 1.44 uIU/mL (0.465-4.68)
[2023-07-11 08:18] LABS: FSH 1.3 mIU/mL (.)
[2023-07-20 15:38] LABS: Testosterone, Total, LC/MS 14 ng/dL (.)
== END ==
LOC: LAB 16:42
PROVIDERS: PCP Physician Assistant; Visit Provider Obstetrics & Gynecology
DX: N91.2 Amenorrhea, unspecified (principal)
CPT/HCPCS: 36415; 82670; 83001; 84403; 84443

== ENCOUNTER → 2023-07-16 13:23 | Outpatient (CLI) | payer OTHER, SELFPAY ==
--- NOTE | 2023-07-16 13:23 | US_ITS ---
PROCEDURE: US TRANSVAGINAL CLINICAL INDICATION: amenorrhea COMPARISON: No exams were available for comparison FINDINGS: Transvaginal sonographic images of the pelvis were obtained. UTERUS: 6.2 cm x 2.9 cmx 5.0 cm retroverted and retroflexed with a combined endometrial thickness of 2.9mm. LEFT OVARY: 3.2 cmx1.9 cmx1.4cm with a volume of 4.3ml. There are 2 follicles on the left ovary. The largest measures 1.3 cm x 1.1 cm by 1.1 cm. RIGHT OVARY: 3.9 cmx 3.1 cmx2.4 cm with a volume of 15ml. There is a follicle in the right ovary measuring 2.9 cm x 2.0 cm x 2.5 cm. Both ovaries are seen and appear normal. Doppler flow to both ovaries are seen. There is no fluid in the cul-de-sac. IMPRESSION: 1. Retroverted, retroflexed uterus normal in shape and size. The endometrium is thin. 2. There are 2 follicles on the left ovary measuring approximately 1.3 cm and 1.6 cm in size. 3. There is a larger follicle on the right ovary measuring 2.9 cm. 4. No fluid in the cul-de-sac. Dictated by: Binu Moreno MD 07/16/2023 17:54 Binu Moreno MD in OV 07/16/2023 17:54
== END ==
LOC: RAD 13:23
PROVIDERS: PCP Physician Assistant; Visit Provider Obstetrics & Gynecology
DX: N91.2 Amenorrhea, unspecified (principal)
CPT/HCPCS: 76830

== ENCOUNTER 2023-10-18 14:44 | Outpatient (CLI) | payer OTHER, SELFPAY ==
--- NOTE | 2023-10-18 | CA_ITS ---
FINAL REPORT TECHNIQUE: Multiple transverse and longitudinal images were performed of the right femoral-popliteal deep venous system with augmentation and compression maneuvers. CLINICAL HISTORY: .Right leg heaviness FINDINGS: Right lower extremity duplex ultrasound demonstrates normal flow in the deep venous system. There is no abnormal echogenicity to suggest thrombus. There is normal compression and augmentation. IMPRESSION: No evidence of right DVT. Reviewed, Interpreted and Dictated by Azul Tate MD Transcribed by Leyla Higgins Authenticated and [facility]
[2023-10-18 15:29] LABS: Basophils # 0.1 K/mm3 (0-0.2); Basophils % 0.9 % (0.1-2.0); Eosinophils # 0.1 K/mm3 (0.0-0.4); Eosinophils % 1.2 % (0.1-12.0); Hematocrit 43.2 % (37.0-47.0); Lymphocytes # 2.6 K/mm3 (0.7-4.5); Lymphocytes % 24.8 % (10-50); Mean Corpuscular HGB Conc 32.3 g/dL (31.8-35.4); Mean Corpuscular Hemoglobin 30.6 pg (27.0-31.2); Mean Corpuscular Volume 94.8 fl (81-99); Monocytes # 0.5 K/mm3 (0.1-1.0); Monocytes % 4.9 % (1.7-9.3); Neutrophils # 7.1 K/mm3 (1.8-7.8); Neutrophils % 68.2 % (37.0-80.0); Platelet Count 215 K/mm3 (142-424); Red Blood Count 4.56 M/mm3 (4.20-5.40); White Blood Count 10.4 K/mm3 (4.8-10.8)
[2023-10-18 17:00] LABS: Amylase 55 U/L (30-110); Lipase 41 U/L (23-300); Magnesium 1.9 mg/dl (1.6-2.3); Phosphorous 4.7 mg/dl (2.5-4.5)
[2023-10-18 17:13] LABS: Free T4 (Free Thyroxine) 1.14 ng/dl (0.78-2.19)
[2023-10-18 17:16] LABS: 25-OH Vitamin D, Total 37.2 ng/mL (30-100)
[2023-10-18 17:29] LABS: Thyroid Stimulating Hormone 1.36 uIU/mL (0.465-4.68)
[2023-10-18 17:47] LABS: Vitamin B12 801 pg/mL (239-931)
[2023-10-18 18:39] LABS: Iron 113 ug/dL (37-170)
[2023-10-18 19:16] LABS: Ferritin 30.4 ng/ml (6.24-137)
== END 2023-10-18 23:59 ==
LOC: RT 14:44
PROVIDERS: PCP Physician Assistant; Visit Provider Physician Assistant
DX: R60.0 Localized edema (principal); I47.10 Supraventricular tachycardia, unspecified; E61.1 Iron deficiency; E53.8 Deficiency of other specified B group vitamins; K86.3 Pseudocyst of pancreas; E83.42 Hypomagnesemia; E83.39 Other disorders of phosphorus metabolism; E55.9 Vitamin D deficiency, unspecified
CPT/HCPCS: 36415; 82150; 82306; 82607; 82728; 83540; 83690; 83735; 84100; 84439; 84443; 85025; 93971

== ENCOUNTER 2023-11-16 08:59 | Outpatient (CLI) | payer OTHER, SELFPAY ==
--- NOTE | 2023-11-16 | CA_ITS ---
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 6.50 mmHg Mitral Valve MV E Max Hector. 88.0 (40-130 cm/s) MV A Velocity 70.0 (40-130 cm/s) E/A Ratio 1.25 MV PHT 53.0 ms Pulmonary Valve PV Peak Velocity 120.0 (50-150 cm/s) Tricuspid Valve TR P. Velocity 235.00 cm/s RAP Estimate 10.00 mmHg RVSP 32.00 mmHg Left Ventricle The left ventricle is normal size. The left ventricular systolic function is normal. The left ventricular ejection fraction is within the normal range. There is normal left ventricular wall thickness. There is normal LV segmental wall motion. The left ventricular diastolic function is normal. LVEF is 55%. Right Ventricle The right ventricle is normal size. The right ventricular systolic function is normal. Atria The left atrium size is normal. The right atrium size is normal. There is no Doppler evidence of interatrial shunt. Aortic Valve The aortic valve opens well. There is no aortic valvular stenosis. No aortic regurgitation is present. The aortic valve is trileaflet. Mitral Valve The mitral valve is normal in structure. No evidence of mitral valve stenosis. There is no mitral valve regurgitation noted. Tricuspid Valve Tricuspid valve leaflets are thin and pliable. Trace tricuspid regurgitation. There is insufficient TR jet to estimate RVSP. Pulmonic Valve The pulmonary valve is normal in structure. Trace pulmonic regurgitation. Great Vessels The aortic root is normal in size. The ascending aorta is normal in size. IVC is normal in size and collapses >50% with inspiration. Pericardium There is no pericardial effusion. Other Information Study Quality: Adequate Conclusion Normal biventricular systolic function. No significant valvular stenosis or regurgitation. Electronically signed by : Nataly Cano MD 11/19/2023 10:33:59
--- NOTE | 2023-11-16 09:22 | CT_ITS ---
FINAL REPORT TECHNIQUE: After the administration of intravenous contrast, axial images were obtained through the abdomen and pelvis by computed tomography. The study was performed with techniques to keep radiation dose as low as reasonably achievable, (ALARA). Individual dose reduction techniques using automated exposure control or adjustment of mA and/or kV according to the patient's size were employed. CLINICAL HISTORY: LEG EDEMA COMPARISON: 07/17/22 FINDINGS: Abdomen: The lung bases are clear. The liver is normal in size and attenuation. The patient is status post cholecystectomy. The spleen is unremarkable. The adrenals are normal. There has been resolution of pancreatitis from the prior exam. There is significant pancreatic atrophy. There is no pseudocyst. The kidneys enhance appropriately. The aorta is normal in caliber. There is no free fluid or adenopathy. There is diffuse colon Fecal impaction. The IVC is widely patent. There is no retroperitoneal mass. Pelvis: The appendix is normal. There are multiple benign-appearing cysts in the right ovary. There is a retroverted uterus. The pelvic bowel loops are unremarkable. The iliac veins are patent. The urinary bladder is unremarkable. There is no free fluid or adenopathy. IMPRESSION: No evidence of iliocaval venous occlusion or mass to account for patient's lower extremity swelling. Resolved changes of pancreatitis from prior exam. Reviewed, Interpreted and Dictated by Maria Eugenia Wheeler MD Transcribed by ABIGAIL Vilchis Authenticated and [facility]
[2023-11-16 09:28] LABS: Blood Urea Nitrogen 18 mg/dl (7-17); Estimated Glomerular Filt Rate 112 ml/min (>60); GFR (African American) 136 ML/MIN (>60)
[2023-11-16] MEDS: SODIUM CHLORIDE 0.9% 10ML SYR (RAD ONLY) 10 ML IV (10:13)
[2023-11-16] MEDS: IOPAMIDOL-370 (76%);100ML BOTTLE 75 ML IV (10:14)
[2023-11-16] MEDS: BARIUM SULFATE(READI-CAT2);450ML BOTTLE 450 ML PO (10:50)
== END 2023-11-16 23:59 ==
LOC: RAD 08:59
PROVIDERS: PCP Physician Assistant; Visit Provider Nurse Practitioner Family
DX: R60.0 Localized edema (principal)
CPT/HCPCS: 36415; 74177; 82565; 84520; 93306; Q9967

== ENCOUNTER 2024-02-29 15:39 | Outpatient (CLI) | payer OTHER, SELFPAY ==
[2024-02-29 16:59] LABS: Thyroid Stimulating Hormone 1.05 uIU/mL (0.465-4.68)
[2024-02-29 17:32] LABS: Hemoglobin A1C 6.7 % (4.0-6.0)
[2024-03-02 09:08] LABS: Estradiol 47.6 pg/mL (.); FSH 16.9 mIU/mL (.); Prolactin 13.9 ng/mL (4.8-33.4)
== END 2024-02-29 23:59 | disposition home or self-care (01) ==
LOC: LAB 15:40
PROVIDERS: PCP Physician Assistant; Visit Provider Obstetrics & Gynecology
DX: N91.2 Amenorrhea, unspecified (principal)
CPT/HCPCS: 36415; 82670; 83001; 83036; 84146; 84443